=== PATIENT | female | born 1965 | race African-American/Black ===

== ENCOUNTER 2021-09-30 11:11 | Day surgery (SDC) | payer OTHER, SELFPAY ==
[2021-09-26 13:48] VITALS: BMI 40.6
--- NOTE | 2021-09-29 10:13 | HO.ANESPROP2 ---
Documented by User: Mely Bill NP 09/29/21 10:13 HPI - Anesthesia Eval Consult details Narrative: 56yo F for Colonoscopy [facility] Past Medical History Medical History (Updated 09/26/21 @ 13:48 by Fay Rodriguez RN) Arthritis COVID-19 vaccine series completed HTN (hypertension) Surgical History Surgical History (Updated 09/26/21 @ 13:30 by Fay Rodriguez RN) H/O colonoscopy Social History Social History Are you a primary child care to a significant other at home: No Do you presently have visiting nurse or other home services: No Patient Tobacco Use Status: Former Tobacco user Quit Date: age 26 Tobacco use type: Cigarette Use of substances other than those prescribed or required for medical reasons: No Have you been hit, kicked, punched, or otherwise hurt by someone within the past year? If so, by whom?: No Are you DNR?: No Advance Directives: No Advance Directives Information Provided: Yes (brochure mailed) Advance Directives on File: No Recently lost weight without trying: No Eating poorly because of decreased appetite: No Nutrition Risks: No Nutritional Risk Poor oral hygiene: No (upper & lower partial) Meds Allergies Allergy/AdvReac Type Severity Reaction Status Date / Time No Known Allergies Allergy Unverified 01/08/20 15:13 [No Known Allergies*] Home Medications Medication Instructions Recorded Confirmed Last Taken Type amlodipine 10 mg tablet 1 tab PO DAILY 09/26/21 09/26/21 09/30/21 08:00 History cholecalciferol (vitamin D3) 1,250 1 cap PO QWEEK 09/26/21 09/26/21 Unknown History mcg (50,000 unit) capsule multivitamin 1 tab PO DAILY 09/26/21 09/26/21 Unknown History Exam Exam Date and Time: September 29, 2021 1013 Height,Weight and Vital Signs: Height 5 ft 9 in Weight 124.738 kg Assessment and Plan Assessment Anesthesia Assessment: Chart Reviewed Documented by User: Luis Shipley MD 09/30/21 12:17 [facility] Past Medical History Medical History (Updated 09/26/21 @ 13:48 by Fay Rodriguez RN) Arthritis COVID-19 vaccine series completed HTN (hypertension) Family History Family history of problems with anesthesia: No Surgical History Surgical History (Updated 09/26/21 @ 13:30 by Fay Rodriguez RN) H/O colonoscopy History of Problems with Anesthesia: No Social History Social History Are you a primary child care to a significant other at home: No Do you presently have visiting nurse or other home services: No Patient Tobacco Use Status: Former Tobacco user Quit Date: age 26 Tobacco use type: Cigarette Use of substances other than those prescribed or required for medical reasons: No Have you been hit, kicked, punched, or otherwise hurt by someone within the past year? If so, by whom?: No Are you DNR?: No Advance Directives: No Advance Directives Information Provided: Yes (brochure mailed) Advance Directives on File: No Recently lost weight without trying: No Eating poorly because of decreased appetite: No Nutrition Risks: No Nutritional Risk Poor oral hygiene: No (upper & lower partial) Meds Allergies Allergy/AdvReac Type Severity Reaction Status Date / Time No Known Allergies Allergy Unverified 01/08/20 15:13 [No Known Allergies*] Home Medications Medication Instructions Recorded Confirmed Last Taken Type amlodipine 10 mg tablet 1 tab PO DAILY 09/26/21 09/26/21 09/30/21 08:00 History cholecalciferol (vitamin D3) 1,250 1 cap PO QWEEK 09/26/21 09/26/21 Unknown History mcg (50,000 unit) capsule multivitamin 1 tab PO DAILY 09/26/21 09/26/21 Unknown History Exam Airway Mallampati Class: III TM Dist: >3cm Neck ROM: Full Partial: Upper Assessment and Plan Assessment Anesthesia Assessment: Anesthesia Plan Discussed Final Anesthetic Review Family History of Problems with Anesthesia: No History of Problems with Anesthesia: No NPO: Yes ASA Class: II Final Preanesthetic Review: No Changes in Pt Med Stat, Meds/Allgs Chart Reviewed, Consent Obtained/Reviewed and Anes Risks/Benef Reviewed Patient Risk: Low Procedure Risk: Low Anesthetic Plan Anesthetic Plan: MAC: Disposition: Standard PACU
[2021-09-30 12:00] VITALS: BP 126/79; PULSE 75; RESP 16; TEMP 36.4; O2SAT 96; BMI 40.6
--- NOTE | 2021-09-30 13:00 | MHC.SHP ---
Pre-Procedural Eval Section A Date of Service: 09/30/21 The patient is an INPATIENT: No Changes since office visit: No Cold of Flu in the past 2 weeks, No New Medical Problems, No Changes in Medication and No Patient answered all questions The History & Physical has been completed within 30 days and I have reviewed it.: Yes Section B Chief Complaint: Right upper quadrant pain,Change in bowel habit Allergies: Allergies Allergy/AdvReac Type Severity Reaction Status Date / Time No Known Allergies Allergy Unverified 01/08/20 15:13 [No Known Allergies*] Plan I have reviewed the history and physical and performed a pertinent physical examination on my patient. No changes have occurred unless specified.
[2021-09-30 13:38] VITALS: BP 84/44; PULSE 80; RESP 16; TEMP 37.2; O2SAT 96
--- NOTE | 2021-09-30 13:46 | P.BOP_ITS ---
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
[2021-09-30 13:51] VITALS: BP 128/80; PULSE 77; RESP 16; TEMP 36.7; O2SAT 97
[2021-09-30] MEDS: Lactated Ringers 1,000 ML 100 ML IVCONT (13:58)
--- NOTE | 2021-09-30 19:50 | OP_ITS ---
SURGEON: Jak Lees MD INDICATIONS: Right upper quadrant pain and change in bowel habits. PREOPERATIVE DIAGNOSIS: POSTOPERATIVE DIAGNOSIS: PROCEDURE PERFORMED: Colonoscopy to the terminal ileum with biopsy. ESTIMATED BLOOD LOSS: COMPLICATIONS: ANESTHESIA: ASSISTANTS: SPECIMENS: MEDICATIONS: Monitored anesthesia care. DESCRIPTION OF PROCEDURE: History and physical were performed. The risks and benefits of the procedure were explained to the patient. Informed consent was obtained and the patient placed in left lateral decubitus position. A digital rectal exam was performed and was found to be normal. The Olympus pediatric video colonoscope was introduced into the rectum and advanced to the cecum without difficulty. The cecum was identified by transillumination, palpation, and identification of the ileocecal valve. Examination was performed and the scope was removed. She tolerated the procedure well and was taken to recovery area in stable condition. FINDINGS: The terminal ileum was examined and appeared normal. Visualized colonic mucosa was normal. The quality of the prep was good. There was no evidence of colitis or mucosal abnormalities particularly in the area of the right upper quadrant. There was mild sigmoid diverticulosis. No mass lesions were identified. Retroflexed examination showed some small internal hemorrhoids. Random sigmoid biopsies were obtained to rule out microscopic colitis. IMPRESSION: Normal colonoscopy. RECOMMENDATION: 1. Follow up as needed. 2. Repeat colonoscopy is recommended in 10 years for average risk individuals. MD AMEENA Mejias/MODL / [id number]
== END 2021-09-30 14:20 | disposition home or self-care (01) ==
PROVIDERS: PCP Nurse Practitioner; Visit Provider Internal Medicine Gastroenterology
PROC: 0DJD8ZZ Inspection of Lower Intestinal Tract, Via Natural or Artificial Opening Endoscopic (ICD-10-PCS; CPT 45378; principal; 2021-09-30 12:20)
DX: R19.4 Change in bowel habit (principal); R10.11 Right upper quadrant pain; Z80.0 Family history of malignant neoplasm of digestive organs; R19.7 Diarrhea, unspecified; K57.30 Diverticulosis of large intestine without perforation or abscess without bleeding; K64.8 Other hemorrhoids; I10 Essential (primary) hypertension; Z79.899 Other long term (current) drug therapy; Z87.891 Personal history of nicotine dependence
CPT/HCPCS: 45380; 88305

== ENCOUNTER 2024-10-15 11:55 | Outpatient (REF) | payer OTHER, SELFPAY ==
[2024-10-15 13:29] LABS: MANUAL DIFF FLAG NO
[2024-10-15 13:32] LABS: Basophils Percent Auto 0.5 % (0-2); Eosinophils Absolute Auto 0.3 X10*3/uL (0.0-0.4); Eosinophils Percent Auto 5.2 % (0-4); Hematocrit 35.1 % (37.0-47.0); Hemoglobin 11.9 g/dl (12.0-16.0); Imm Gran Abs Auto 0.01 X10*3/uL (0.00-0.03); Imm Gran Pct Auto 0.2 % (0.0-0.4); Lymphocytes Absolute Auto 2.3 X10*3/uL (1.2-4.9); Lymphocytes Percent Auto 41.4 % (20-40); Mean Corpuscular HGB Conc 33.9 g/dl (31.0-35.0); Mean Corpuscular Hemoglobin 31.8 pg (27.0-33.0); Mean Corpuscular Volume 93.9 fL (80.0-98.0); Mean Platelet Volume 9.4 fL (9.4-12.3); Monocytes Absolute Auto 0.5 X10*3/uL (0.1-1.2); Monocytes Percent Auto 8.8 % (2-11); Neutrophils Absolute Auto 2.4 x10*3/uL (2.0-8.3); Neutrophils Percent Auto 43.9 % (45-73); Platelet Count 292 X10*3/uL (160-400); Red Blood Count 3.74 X10*6/uL (4.20-5.50); White Blood Count 5.6 X10*3/uL (4.8-10.8)
--- OUTSIDE RECORDS SUMMARY | 2024-10-15 14:10 | XMS_ITS | Data Portability ---
Author Organization [facility], Main Office Address [address] [facility] [address] [place] [id number] Care Team Providers Care Buyer Internship Name Role Phone [facility] Gynecolo gist JAK LEES JR Veterinarian [facility] (NADEEM KRUSE) Orthopedic Surgeon PETAR WHYTE Orthopedic Surgeon MIRNA GALINDO Primary Care Provider Assessment No assessment recorded. Plan of Treatment Reminders Order Date Submit Date Provider Last Modified By Organization Details Last Modified Time Details Appointments FOLLOW UP 2024 09:15A M MIRNA GALINDO MD Not available Not available Not available Lab lipid panel, serum 2024 025 GELA [facility], [address] [place], [address], 08/28/2024 13:55:38 BMP, serum or plasma 2024 025 GELA [facility], [address], [place], [address], 08/28/2024 13:55:38 TSH, ultra-s ensitiv e, serum 2024 025 GELA [facility], [address] [place], [address], 08/28/2024 13:55:37 Hepatit is C IgG Ab, qual, serum 2024 025 GELA [facility] (Centralized Electronic Ordering - All Locations), Patient Can Go To The Location Of Their Choice, 08/28/2024 13:55:39 CBC w/ auto diff 2024 025 GELA [facility], [address], [place], [address], 08/28/2024 13:55:37 iron + total iron-bi nding capacit y (TIBC), serum 2024 025 GELA [facility] (Centralized Electronic Ordering - All Locations), Patient Can Go To The Location Of Their Choice, 08/28/2024 13:55:37 ferriti n, serum or plasma 2024 025 GELA [facility] (Centralized Electronic Ordering - All Locations), Patient Can Go To The Location Of Their Choice, 08/28/2024 13:55:38 retic count, blood 2024 025 GELA [facility] (Centralized Electronic Ordering - All Locations), Patient Can Go To The Location Of Their Choice, 08/28/2024 13:55:39 giardia lamblia Ag, EIA, stool 2024 025 GELA [facility], [address], [place], [address], 06/27/2024 10:06:30 gastroi ntestin al pathoge ns panel, culture , stool 2024 025 EGLA [facility], [address], [place], [address], 06/27/2024 10:06:29 lipid panel, serum 2023 024 GELA [facility], [address], [place], [address], 04/08/2024 08:09:22 CBC w/ auto diff 2023 024 GELA [facility], [address], [place], [address], 04/08/2024 08:09:20 iron + total iron-bi nding capacit y (TIBC), serum 2023 024 GELA [facility] (Centralized Electronic Ordering - All Locations), Patient Can Go To The Location Of Their Choice, [facility] 04/08/2024 08:09:22 ferriti n, serum or plasma 2023 024 GELA [facility] (Centralized Electronic Ordering - All Locations), Patient Can Go To The Location Of Their Choice, [id number] 04/08/2024 08:09:24 retic count, blood 2023 GELA [facility] (Centralized Electronic Ordering - All Locations), Patient Can Go To The Location Of Their Choice, [id number] 04/08/2024 08:09:25 BMP, serum or plasma 2023 024 GELA [facility], [address], [place], [address], 04/08/2024 08:09:20 TSH, ultra-s ensitiv e, serum 2023 024 GELA [facility], [address], [place], [address], 04/08/2024 08:09:23 Referral gynecol ogist referra l 2024 025 [email or web address] Not available 08/28/2024 14:03:45 gastroe nterolo gist referra l 2024 025 ATHENAFAX Jak Lees Jr, MD, [address] [place] [address] [place], [address], 06/23/2024 13:58:28 Procedures None recorde d. Surgeries None recorde d. Imaging US, duplex, venous, lower extremi ty, unilate ral - vascula r study to check for venous insuffi ciency 2024 025 melanie [facility] (Ultrasound), [address], [place], [address], 09/09/2024 10:39:42 XR, abdomen - RLQ pain - ? d/t underly ing constip ation --- please comment on stool burden 2024 025 [facility], [address], [place], [address], 06/23/2024 17:24:25 pharmac ologic [facility] chest pain 2023 024 melanie [facility], [address] [place], [address], 04/28/2024 10:08:53 Medication Orders valsart an 160 mg tablet 2024 025 GELA [id number], [address], [place], [id number], 08/28/2024 13:55:36 valsart an 80 mg tablet 2022 023 [id number], [address], [place], [id number], 08/28/2024 13:47:12 Patient TargetsNo targets recorded. Patient Instructions Encounter Date Encounter Id Patient Instructions Last Modified By Organization Details Last Modified Time 12/26/2022 [id number] starting a weigh t loss plan: care instructions Not available 12/26/2022 11:45:36 Nutrition Referral and Weight Management Follow-up Information Not available 12/26/2022 11:45:36 04/07/2024 [id number] high blood pressure: care instructions Not available 04/07/2024 13:37:04 learning about high blood pressure Not available 04/07/2024 13:37:04 iron deficiency anemia: care instructions Not available 04/07/2024 13:37:04 06/23/2024 [id number] Patient will follow up and keep appointment as scheduled. [email or web address] Not available 06/23/2024 13:22:15 08/28/2024 [id number] medical record request* [email or web address] Not available 09/02/2024 09:35:40 When You Want to Lose Weight: Care Instructions Not available 08/28/2024 15:01:14 body mass index: care instructions Not available 08/28/2024 15:01:14 learning about healthy weight Not available 08/28/2024 15:01:14 leg and ankle edema: care instructions Not available 08/28/2024 13:55:31 iron deficiency anemia: care instructions Not available 08/28/2024 13:55:31 Reason for Referral Veterinarian Referral for Right lower quadrant pain Referring Physician: Maximo Redman, Internal Medicine, Encounter Date: 06/23/2024 [employer]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) [address] [place], [address], 04/08/2024 08:09:19 04/07/20 24 04/08/2024 CBC WITH DIFFE RENTI AL/PL ATELE T RBC 4.03 x10e6 /uL 3.77-5 .28 normal Not Available [facility] ([facility]) [address] [place], [address], 04/08/2024 08:09:19 04/07/20 24 04/08/2024 CBC WITH DIFFE RENTI AL/PL ATELE T hemoglobin 12.6 g/dL 11.1-1 5.9 normal Not Available [facility] ([facility]) [address] [facility], [place], [address], 04/08/2024 08:09:19 04/07/20 24 04/08/2024 CBC WITH DIFFE RENTI AL/PL ATELE T hematocrit 38.2 % 34.0-4 6.6 normal Not Available [facility] ([facility]) [address] [facility], [place], [address], 04/08/2024 08:09:19 04/07/20 24 04/08/2024 CBC WITH DIFFE RENTI AL/PL ATELE T MCV 95 fL 79-97 normal Not Available [facility] ([facility]) [address] [facility], [place], [address], 04/08/2024 08:09:19 04/07/20 24 04/08/2024 CBC WITH DIFFE RENTI AL/PL ATELE T MCH 31.3 pg 26.6-3 3.0 normal Not Available [facility] ([facility]) [address] [facility], [place], [address], 04/08/2024 08:09:19 04/07/20 24 04/08/2024 CBC WITH DIFFE RENTI AL/PL ATELE T MCHC 33.0 g/dL 31.5-3 5.7 normal Not Available [facility] ([facility]) [address] [facility], [place], [address], 04/08/2024 08:09:19 04/07/20 24 04/08/2024 CBC WITH DIFFE RENTI AL/PL ATELE T RDW 12.3 % 11.7-1 5.4 Not Available [facility] ([facility]) [address] [facility], [place], [address], 04/08/2024 08:09:19 04/07/20 24 04/08/2024 CBC WITH DIFFE RENTI AL/PL ATELE T platelets 341 x10e3 /uL 150-45 0 normal Not Available [facility] ([facility]) [address] [facility], [place], [address], 04/08/2024 08:09:19 04/07/20 24 04/08/2024 CBC WITH DIFFE RENTI AL/PL ATELE T neutrophils 47 % not estab. normal Not Available [facility] ([facility]) [address] [facility], [place], [address], 04/08/2024 08:09:19 04/07/20 24 04/08/2024 CBC WITH DIFFE RENTI AL/PL ATELE T lymphs 42 % not estab. normal Not Available [facility] ([facility]) [address] [facility], [place], [address], 04/08/2024 08:09:19 04/07/20 24 04/08/2024 CBC WITH DIFFE RENTI AL/PL ATELE T monocytes 6 % not estab. normal Not Available [facility] ([facility]) [address] [facility], [place], [address], 04/08/2024 08:09:19 04/07/20 24 04/08/2024 CBC WITH DIFFE RENTI AL/PL ATELE T eos 4 % not estab. normal Not Available [facility] ([facility]) [address] [facility], [place], [address], 04/08/2024 08:09:19 04/07/20 24 04/08/2024 CBC WITH DIFFE RENTI AL/PL ATELE T basos 1 % not estab. normal Not Available [facility] ([facility]) [address] [facility], [place], [address], 04/08/2024 08:09:19 04/07/20 24 04/08/2024 CBC WITH DIFFE RENTI AL/PL ATELE T immature cells DIRECTOR OF HOTEL OPERATIONS Not Available [facility] ([facility]) [address] [facility], [place], [address], 04/08/2024 08:09:19 04/07/20 24 04/08/2024 CBC WITH DIFFE RENTI AL/PL ATELE T neutrophils (absolute) 3.0 x10e3 /uL 1.4-7. 0 normal Not Available [facility] ([facility]) [address] [place], [address], 04/08/2024 08:09:19 04/07/20 24 04/08/2024 CBC WITH DIFFE RENTI AL/PL ATELE T lymphs (absolute) 2.7 x10e3 /uL 0.7-3. 1 normal Not Available [facility] ([facility]) [address] [place], [address], 04/08/2024 08:09:19 04/07/20 24 04/08/2024 CBC WITH DIFFE RENTI AL/PL ATELE T monocytes(ab solute) 0.4 x10e3 /uL 0.1-0. 9 normal Not Available [facility] ([facility]) [address] [place], [address], 04/08/2024 08:09:19 04/07/20 24 04/08/2024 CBC WITH DIFFE RENTI AL/PL ATELE T eos (absolute) 0.3 x10e3 /uL 0.0-0. 4 normal Not Available [facility] ([facility]) [address] [place], [address], 04/08/2024 08:09:19 04/07/20 24 04/08/2024 CBC WITH DIFFE RENTI AL/PL ATELE T baso (absolute) 0.0 x10e3 /uL 0.0-0. 2 normal Not Available [facility] ([facility]) [address] [place], [address], 04/08/2024 08:09:19 04/07/20 24 04/08/2024 CBC WITH DIFFE RENTI AL/PL ATELE T immature granulocytes 0 % not estab. Not Available [facility] ([facility]) [address] [place], [address], 04/08/2024 08:09:19 04/07/20 24 04/08/2024 CBC WITH DIFFE RENTI AL/PL ATELE T immature grans (abs) 0.0 x10e3 /uL 0.0-0. 1 Not Available [facility] ([facility]) [address] [facility], [place], [address], 04/08/2024 08:09:19 04/07/20 24 04/08/2024 CBC WITH DIFFE RENTI AL/PL ATELE T NRBC DIRECTOR OF HOTEL OPERATIONS Not Available [facility] ([facility]) [address] [facility], [place], [address], 04/08/2024 08:09:19 04/07/20 24 04/08/2024 CBC WITH DIFFE RENTI AL/PL ATELE T hematology comments: DIRECTOR OF HOTEL OPERATIONS Not Available [facility] ([facility]) [address] [facility], [place], [address], 04/08/2024 08:09:19 04/07/20 24 04/08/2024 BASIC METAB OLIC PANEL (8) glucose 93 mg/dL 70-99 normal Not Available [facility] ([facility]) [address] [facility], [place], [address], 04/08/2024 08:09:20 04/07/20 24 04/08/2024 BASIC METAB OLIC PANEL (8) BUN 12 mg/dL 6-24 normal Not Available [facility] ([facility]) [address] [facility], [place], [address], 04/08/2024 08:09:20 04/07/20 24 04/08/2024 BASIC METAB OLIC PANEL (8) creatinine 0.81 mg/dL 0.57-1 .00 normal Not Available [facility] ([facility]) [address] [facility], [place], [address], 04/08/2024 08:09:20 04/07/20 24 04/08/2024 BASIC METAB OLIC PANEL (8) eGFR 85 mL/mi n/1.7 3 >59 normal Not Available [facility] ([facility]) [address] [facility], [place], [address], 04/08/2024 08:09:20 04/07/20 24 04/08/2024 BASIC METAB OLIC PANEL (8) BUN/creatini ne ratio 15 9-23 normal Not Available [facility] ([facility]) [address] [facility], [place], [address], 04/08/2024 08:09:20 04/07/20 24 04/08/2024 BASIC METAB OLIC PANEL (8) sodium 139 mmol/ L 134-14 4 normal Not Available [facility] ([facility]) [address] [facility], [place], [address], 04/08/2024 08:09:20 04/07/20 24 04/08/2024 BASIC METAB OLIC PANEL (8) potassium 3.9 mmol/ L 3.5-5. 2 normal Not Available [facility] ([facility]) [address] [facility], [place], [address], 04/08/2024 08:09:20 04/07/20 24 04/08/2024 BASIC METAB OLIC PANEL (8) chloride 102 mmol/ L 96-106 normal Not Available [facility] ([facility]) [address] [place], [address], 04/08/2024 08:09:20 04/07/20 24 04/08/2024 BASIC METAB OLIC PANEL (8) carbon dioxide, total 23 mmol/ L 20-29 normal Not Available [facility] ([facility]) [address] [facility], [place], [address], 04/08/2024 08:09:20 04/07/20 24 04/08/2024 BASIC METAB OLIC PANEL (8) calcium 9.4 mg/dL 8.7-10 .2 normal Not Available [facility] ([facility]) [address] [facility], [place], [address], 04/08/2024 08:09:20 04/07/20 24 04/08/2024 LIPID PANEL cholesterol, total 216 mg/dL 100-19 9 above high normal Not Available [facility] ([facility]) [address] [place], [address], 04/08/2024 08:09:22 04/07/20 24 04/08/2024 LIPID PANEL triglyceride s 93 mg/dL 0-149 normal Not Available [facility] ([facility]) [address] [place], [address], 04/08/2024 08:09:22 04/07/20 24 04/08/2024 LIPID PANEL HDL cholesterol 73 mg/dL >39 normal Not Available [facility] ([facility]) [address] [place], [address], 04/08/2024 08:09:22 04/07/20 24 04/08/2024 LIPID PANEL VLDL cholesterol sondra 16 mg/dL 5-40 Not Available [facility] ([facility]) [address] [place], [address], 04/08/2024 08:09:22 04/07/20 24 04/08/2024 LIPID PANEL LDL chol calc ([facility]) 127 mg/dL 0-99 above high normal Not Available [facility] ([facility]) [address] [place], [address], 04/08/2024 08:09:22 04/07/20 24 04/08/2024 LIPID PANEL LDL calc comment: DIRECTOR OF HOTEL OPERATIONS Not Available [facility] ([facility]) [address] [place], [address], 04/08/2024 08:09:22 04/07/20 24 04/08/2024 IRON AND TIBC iron bind.cap.(TI BC) 378 ug/dL 250-45 0 normal Not Available [facility] ([facility]) [address] [place], [address], 04/08/2024 08:09:22 04/07/20 24 04/08/2024 IRON AND TIBC UIBC 286 ug/dL 131-42 5 normal Not Available [facility] ([facility]) [address] [place], [address], 04/08/2024 08:09:22 04/07/20 24 04/08/2024 IRON AND TIBC iron 92 ug/dL 27-159 normal Not Available [facility] ([facility]) [address] [place], [address], 04/08/2024 08:09:22 04/07/20 24 04/08/2024 IRON AND TIBC iron saturation 24 % 15-55 normal Not Available [facility] ([facility]) [address] [place], [address], 04/08/2024 08:09:22 04/07/20 24 04/08/2024 TSH RFX ON ABNOR MAL TO FREE T4 TSH 3.340 uIU/m L 0.450- 4.500 normal Not Available [facility] ([facility]) [address] [place], [address], 04/08/2024 08:09:23 04/07/20 24 04/08/2024 JEREMIAH TIN ferritin 156 NG/mL 15-150 above high normal Not Available [facility] ([facility]) [address] [place], [address], 04/08/2024 08:09:24 04/07/20 24 04/08/2024 RETIC ULOCY TE COUNT reticulocyte count 1.0 % 0.6-2. 6 Not Available [facility] ([facility]) [address] [place], [address], 04/08/2024 08:09:25 06/24/19 25 06/25/2024 STOOL CULTU RE salmonella/s higella screen Final report Not Available [facility] ([facility]) [address] [place], [address], 06/27/2024 10:06:29 06/24/19 25 06/25/2024 STOOL CULTU RE result 1 COMMEN T No Salmo rodrigo or Shige lla recov ered. Not Available [facility] ([facility]) [address] [place], [address], 06/27/2024 10:06:29 06/24/19 25 06/25/2024 STOOL CULTU RE E coli shiga toxin EIA Negati ve negati ve Not Available [facility] ([facility]) [address] [place], [address], 06/27/2024 10:06:29 06/24/19 25 06/27/2024 STOOL CULTU RE campylobacte r culture Final report Not Available [facility] ([facility]) [address] [place], [address], 06/27/2024 10:06:29 06/24/19 25 06/27/2024 STOOL CULTU RE result 1 COMMEN T No Campy lobac ter speci es isola serjio. Not Available [facility] ([facility]) [address] [place], [address], 06/27/2024 10:06:29 06/24/19 25 06/24/2024 GIARD IA LAMBL IA AG, EIA giardia lamblia Ag, EIA Negati ve negati ve Not Available [facility] ([facility]) [address] [place], [address], 06/27/2024 10:06:30 06/23/19 23 06/22/2022 MAMMO , scree dian, digit al, bilat eral PROCED URE: MM Digita l Mammo Screen ing INDICA TION: Screen ing for breast cancer . No known palpab le abnorm alitie s. COMPAR YOSVANY: Priors , most recent dated 04/28/19 22 TECHNI QUE: Full-f ield digita l CC and MLO 3D tomosy nthesi s images of both breast s were acquir ed. Comput er-aid ed detect ion (CAD) was utiliz ed in the interp retati on of this study. DENSIT Y: The breast tissue contai ns scatte red areas of fibrog landul ar densit y. FINDIN GS: No suspic ious masses , suspic ious microc alcifi cation s, or areas of hannah ectura l distor tion are seen in either breast to sugges t malign hafsa. IMPRES REN: No mammog raphic eviden ce of malign hafsa. RECOMM ENDATI ON: Annual mammog raphic screen ing BI-RAD S: 1 (Negat phil) Lay letter mailed to jomar t WSN: [id number] Orderi ng Physic sarahi: Anya barnett DIRECTOR OF HOTEL OPERATIONS, Juanita Ordonez Dictat ed By: Quentin Hay MD Dictat ed Date/T kathy: 2:19 pm Review ed By: Quentin Hay MD Signed By: Quentin Hay MD Signed Date/T kathy: 2:19 pm Transc ribed By: JONATHAN Transc riptio n Date/T kathy: 2:14 pm Birads : Patihollis t Class: Outpat ient [email or web address] (Out[facility] Imaging) [address] [place], [address], 08/02/2022 07:47:12 11/15/19 24 11/15/2023 MAMMO , scree dian, digit al, bilat eral PROCED URE: MM Digita l Mammo Screen ing INDICA TION: Screen ing for breast cancer . No known palpab le abnorm alitie s. Family histor y of breast cancer sister at the age of 70 COMPAR YOSVANY: Priors , most recent dated 06/23/19 23 TECHNI QUE: Full-f ield digita l CC and MLO 3D tomosy nthesi s images of both breast s were acquir ed. Comput er-aid ed detect ion (CAD) was utiliz ed in the interp retati on of this study. DENSIT Y: There are scatte red areas of fibrog landul ar densit y. FINDIN GS: No suspic ious masses , suspic ious microc alcifi cation s, or areas of hannah ectura l distor tion are seen in either breast to sugges t malign hafsa. IMPRES REN: No mammog raphic eviden ce of malign hafsa. RECOMM ENDATI ON: Annual mammog raphic screen ing BI-RAD S: 1 (Negat phil) Lay letter mailed to jomar guy WSN: [id number] Orderi ng Physic sarahi: Alexander Vora ie Dictat ed By: Quentin Hay MD Dictat ed Date/T kathy: 10:33 am Review ed By: Quentin Hay MD Signed By: Quentin Hay MD Signed Date/T kathy: 10:33 am Transc ribed By: CSB Transc riptio n Date/T kathy: 10:31 am Birads : Jomar guy Class: Outpat ient [email or web address] [facility] (Out[facility]) [address] [place], [address], 11/15/2023 10:47:43 11/15/19 24 11/15/2023 MAMMO , scree dian, digit al, bilat eral No observ ation record ed. [facility] [address] [place], [address], 11/15/2023 12:39:14 05/06/19 25 05/01/2024 pharm acolo gic stres s test No observ ation record ed. [email or web address] [facility] [address] , [place], [address], 05/15/2024 15:22:19 06/24/19 25 06/23/2024 XR, abdom en XR Abdome n AP supine view INDICA TION/C LINICA L QUESTI ON: Consti pation COMPAR YOSVANY: None FINDIN GS: Mild stool retent ion in the ascend ing colon. Otherw ise normal gas patter n. No obstru ction. No eviden ce of pneumo perito neum. No organo megaly , masses or calcif icatio ns. No acute bone findin gs. IMPRES REN: Mild stool retent ion but otherw ise normal . WSN: [id number] Orderi ng Physic sarahi: Ge Redman Dictat ed By: Ann Lucero MD Dictat ed Date/T kathy: 5:19 pm Review ed By: Ann Lucero MD Signed By: Ann Lucero MD Signed Date/T kathy: 5:19 pm Transc ribed By: JONTAHAN Transc ribed Date/T kathy: 5:18 pm Patien t Class: Outpat ient [facility] (Outpt Imaging) [address], [place], [address], 07/24/2024 10:27:20 09/23/19 25 09/22/2024 US, duple x, venou s, lower extre mity, compl ete US Dopple r Ext Lower Venous Bilat Reason : R60.0 LOCALI ZED EDEMA COMPAR YOSVANY: None IMAGIN G TECHNI QUE: Ultras ound of the veins from the groin throug h the calf was perfor med using graysc alexandre, color, and spectr al Dopple r ultras ound assess ing for comple te compre ssibil ity and normal flow charac terist ics. FINDIN GS: RIGHT LOWER EXTREM ITY: Common femora l vein: Patent . No thromb osis. Femora l vein: Patent . No thromb osis. Poplit eal vein: Patent . No thromb osis. Gastro cnemiu s veins: The visual ized portio ns are patent withou t eviden ce of thromb osis. Perone al veins: The visual ized portio ns are patent withou t eviden ce of thromb osis. Mamma Logist ior tibial veins: The visual ized portio ns are patent withou t eviden ce of thromb osis. LEFT LOWER EXTREM ITY: Common femora l vein: Patent . No thromb osis. Femora l vein: Patent . No thromb osis. Poplit eal vein: Patent . No thromb osis. Gastro cnemiu s veins: The visual ized portio ns are patent withou t eviden ce of thromb osis. Perone al veins: The visual ized portio ns are patent withou t eviden ce of thromb osis. Mamma Logist ior tibial veins: The visual ized portio ns are patent withou t eviden ce of thromb osis. OTHER FINDIN GS: None. IMPRES REN: No eviden ce of deep venous thromb osis. I have person ally review ed the images and I agree with this report . WSN: [id number] Orderi ng Physic sarahi: Alexander Vora Dictat ed By: Alma Floyd i, DO Dictrosa maria ed Date/T kathy: 5:14 pm Review ed By: Papito Weathers MD Signed By: Papito Weathers MD Signed Date/T kathy: 5:19 pm Transc ribed By: JONATHAN Transc ribed Date/T kathy: 5:05 pm Patien t Class: Outpat ient [facility] (Outpt Imaging) [address] [place] [address], [address], 09/30/2024 18:53:19 Result Notes Documentation Provider Name and Address Organization Details Recorded Time Mammo, Screening, Digital, Bilateral : PROCEDURE: MM Digital Mammo Screening INDICATION: Screening for breast cancer. No known palpable abnormalities. Family history of breast cancer sister at the age of 70 COMPARISON: Priors, most recent dated 06/22/2022 TECHNIQUE: Full-field digital CC and MLO 3D tomosynthesis images of both breasts were acquired. Computer-aided detection (CAD) was utilized in the interpretation of this study. DENSITY: There are scattered areas of fibroglandular density. FINDINGS: No suspicious masses, suspicious microcalcifications, or areas of architectural distortion are seen in either breast to suggest malignancy. IMPRESSION: No mammographic evidence of malignancy. RECOMMENDATION: Annual mammographic screening BI-RADS: 1 (Negative) Lay letter mailed to patient WSN: [id number] Ordering Physician: Mirna Galindo Dictated By: Mallory Hay MD Dictated Date/Time: 11/15/23 10:33 am Reviewed By: Mallory Hay MD Signed By: Mallory Hay MD Signed Date/Time: 11/15/23 10:33 am Transcribed By: JONATHAN Court Orderly Date/Time: 11/15/23 10:31 am Birads: Patient Class: Outpatient Sylwia Vanegas [facility] 11/15/2023 10:47:43 Xr, Abdomen : XR Abdomen AP supine view INDICATION/CLINICAL QUESTION: Constipation COMPARISON: None FINDINGS: Mild stool retention in the ascending colon. Otherwise normal gas pattern. No obstruction. No evidence of pneumoperitoneum. No organomegaly, masses or calcifications. No acute bone findings. IMPRESSION: Mild stool retention but otherwise normal. WSN: [id number] Ordering Physician: Maximo Redman Dictated By: Lawrence Bowen MD Dictated Date/Time: 06/23/24 5:19 pm Reviewed By: Lawrence Bowen MD Signed By: Lawrence Bowen MD Signed Date/Time: 06/23/24 5:19 pm Transcribed By: JONATHAN Transcribed Date/Time: 06/23/24 5:18 pm Patient Class: Outpatient Samia Walters MA [facility] 07/24/2024 10:27:20 Problems Name Problem SNOMED Code Status Onset Date Resolution Date Notes Provider Name and Address Organization Details Recorded Time Acute bronchit is 77604613 Completed 201211/27/2013 RECORDED 11/21/19 13 10:04AM BY ARCELIA BRUNOATI ON/ADDEN DUM Not Available [facility] 4 12:27:29 Acute sinusiti s [id number] Completed 201211/27/2013 RECORDED 05/07/19 13 12:57PM BY NGUYEN MAGAÑA MA, ANNOTATI ON/ADDEN DUM Not Available [facility] 4 12:27:29 Acute upper respirat ory infectio n of multiple sites Completed 201211/27/2013 RECORDED 05/07/19 13 12:57PM BY NGUYEN MAGAÑA MA, GIANFRANCO ON/ADDEN DUM Not Available [facility] 4 12:27:30 Screenin g for malignan t neoplasm of breast Completed 201211/27/2013 RECORDED 05/07/19 13 12:57PM BY NGUYEN MAGAÑA MA, ANNOTATI ON/ADDEN DUM Not Available [facility] 4 12:27:30 Screenin g for malignan t neoplasm of cervix Completed 201211/27/2013 RECORDED 05/07/19 13 12:57PM BY NGUYEN MAGAÑA MA, ARCELIAATI ON/ADDEN DUM Not Available [facility] 4 12:27:30 Cough [id number] Completed 201211/27/2013 IMPRESSI ON: PROBABLY POST-VIR AL. DISCUSSE D THE NATURAL COURSE OF THIS TYPE OF COUGH AND THE FACT THAT NONE OF THE TREATMEN T MAY HELP MUCH AND THE COUGH NEEDS TO RUN IT'S COURSE.; RECORDED 11/27/19 13 11:37AM BY TRELL FONTANEZ MA, GIANFRANCO ON/ADDEN DUM Not Available [facility] 4 12:27:30 Dysuria [id number] Completed 201211/27/2013 RECORDED 05/07/19 13 12:57PM BY NGUYEN MAGAÑA MA, ARCELIAATI ON/ADDEN DUM Not Available [facility] 4 12:27:30 Follow-u p encounte r Completed 201211/27/2013 RECORDED 05/07/19 13 12:57PM BY NGUYEN MAGAÑA MA, GIANFRANCO ON/ADDEN DUM Not Available [facility] 4 12:27:30 Malaise and fatigue 469511877 Completed 200811/27/2013 RECORDED 01/28/20 09 7:55AM BY NGUYEN MAGAÑA MA, GIANFRANCO ON/ADDEN DUM Not Available [facility] 4 12:27:30 Tobacco user [id number] Completed 201211/27/2013 RECORDED 01/14/20 13 2:56PM BY THEODORA WARE MA, ANNOTATI ON/ADDEN DUM Not Available [facility] 4 12:27:30 Adult health examinat ion Completed 200811/27/2013 RECORDED 01/28/20 09 7:55AM BY NGUYEN MAGAÑA MA, ANNOTATI ON/ADDEN DUM Not Available [facility] 4 12:27:30 Sprains and strains of joints and adjacent muscles Completed 201211/27/2013 RECORDED 04/04/20 13 10:02AM BY NGUYEN MAGAÑA MA, ANNOTATI ON/ADDEN DUM Not Available [facility] 4 12:27:30 Stress fracture [id number] Completed 201211/27/2013 RECORDED 05/07/19 13 12:57PM BY NGUYEN MAGAÑA MA, ANNOTATI ON/ADDEN DUM Not Available [facility] 4 12:27:30 Candidal vulvovag initis 08885208 Completed 200811/27/2013 RECORDED 01/28/20 09 7:55AM BY NGUYEN MAGAÑA MA, ANNOTATI ON/ADDEN DUM Not Available [facility] 4 12:27:31 Acute bronchit is 46377279 Completed 201211/28/2013 RECORDED 11/21/19 13 10:04AM BY MAIRA VU I, ARCELIAATI ON/ADDEN DUM Not Available [facility] 4 03:38:58 Acute sinusiti s 16062389 Completed 201211/28/2013 RECORDED 05/07/19 13 12:57PM BY NGUYEN MAGAÑA MA, ANNOTATI ON/ADDEN DUM Not Available [facility] 4 03:38:58 Acute upper respirat ory infectio n of multiple sites Completed 201211/28/2013 RECORDED 05/07/19 13 12:57PM BY NGUYEN MAGAÑA MA, ANNOTATI ON/ADDEN DUM Not Available [facility] 4 03:38:58 Screenin g for malignan t neoplasm of breast Completed 201211/28/2013 RECORDED 05/07/19 13 12:57PM BY NGUYEN MAGAÑA MA, ANNOTATI ON/ADDEN DUM Not Available [facility] 4 03:38:58 Screenin g for malignan t neoplasm of cervix Completed 201211/28/2013 RECORDED 05/07/19 13 12:57PM BY NGUYEN MAGAÑA MA, ANNOTATI ON/ADDEN DUM Not Available [facility] 4 03:38:59 Cough 10174926 Completed 201211/28/2013 IMPRESSI ON: PROBABLY POST-VIR AL. DISCUSSE D THE NATURAL COURSE OF THIS TYPE OF COUGH AND THE FACT THAT NONE OF THE TREATMEN T MAY HELP MUCH AND THE COUGH NEEDS TO RUN IT'S COURSE.; RECORDED 11/27/19 13 11:37AM BY TRELL FONTANEZ MA, GIANFRANCO ON/ADDEN DUM Not Available [facility] 4 03:38:59 Dysuria 57894826 Completed 201211/28/2013 RECORDED 05/07/19 13 12:57PM BY NGUYEN MAGAÑA MA, ARCELIAATI ON/ADDEN DUM Not Available [facility] 4 03:38:59 Follow-u p encounte r Completed 201211/28/2013 RECORDED 05/07/19 13 12:57PM BY NGUYEN MAGAÑA MA, ANNOTATI ON/ADDEN DUM Not Available [facility] 4 03:38:59 Malaise and fatigue 021917118 Completed 200811/28/2013 RECORDED 01/28/20 09 7:55AM BY NGUYEN MAGAÑA MA, ANNOTATI ON/ADDEN DUM Not Available [facility] 4 03:38:59 Tobacco user [id number] Completed 201211/28/2013 RECORDED 01/14/20 13 2:56PM BY THEODORA WARE MA, ANNOTATI ON/ADDEN DUM Not Available [facility] 4 03:38:59 Adult health examinat ion Completed 200811/28/2013 RECORDED 01/28/20 09 7:55AM BY NGUYEN MAGAÑA MA, ANNOTATI ON/ADDEN DUM Not Available [facility] 4 03:38:59 Sprains and strains of joints and adjacent muscles Completed 201211/28/2013 RECORDED 04/04/20 13 10:02AM BY NGUYEN MAGAÑA MA, ANNOTATI ON/ADDEN DUM Not Available [facility] 4 03:38:59 Stress fracture 771690468 Completed 201211/28/2013 RECORDED 05/07/19 13 12:57PM BY NGUYEN MAGAÑA MA, ANNOTATI ON/ADDEN DUM Not Available [facility] 4 03:38:59 Candidal vulvovag initis 89548030 Completed 200811/28/2013 RECORDED 01/28/20 09 7:55AM BY NGUYEN MAGAÑA MA, ANNOTATI ON/ADDEN DUM Not Available [facility] 4 03:38:59 Inflamma tion of sacroili ac joint 08068411 Active Not Available [facility] 2 02:26:40 Greater trochant valdo pain syndrome 1268898 Active Not Available [facility] 2 02:26:40 Body mass index 40+ - severely obese 193546972 Active Not Available [facility] 2 02:26:39 Elevated blood-pr essure reading without diagnosi s of hyperten ren 980917120 Completed 02/07/2018 Maximo Redman PA-C [address] [facility] [address], [place], [address] , [facility] 8 11:12:07 Fatigue 02354658 Completed 08/14/2017 Diann salter, [facility] 8 10:34:24 [facility] hyperten ren 70530267 Active 2017 Not Available [facility] 2 02:26:40 Family history of cancer of colon 128764584 Active 2018 Not Available [facility] 2 02:26:39 Abdomina l wall pain 825475917 Active 2019 Not Available [facility] 2 02:26:40 Alterati on in bowel eliminat ion 215816054 Active Not Available [facility] 2 02:26:40 Patient encounte r status 126077737 Active Not Available [facility] 2 02:26:40 Right upper quadrant pain 700896622 Active Not Available [facility] 2 02:26:40 Acute bronchit is 59907926 Completed 201211/04/2013 RECORDED 11/21/19 13 10:04AM BY MAIRA VU I, ANNOTATI ON/ADDEN DUM Not Available [facility] 4 14:04:17 Acute sinusiti s 71180166 Completed 201211/04/2013 RECORDED 05/07/19 13 12:57PM BY NGUYEN MAGAÑA MA, ANNOTATI ON/ADDEN DUM Not Available [facility] 4 14:04:17 Acute upper respirat ory infectio n of multiple sites Completed 201211/04/2013 RECORDED 05/07/19 13 12:57PM BY NGUYEN MAGAÑA MA, ANNOTATI ON/ADDEN DUM Not Available [facility] 4 14:04:17 Adjustme nt disorder with anxious mood 92399154 Active 2012 Not Available [facility] 2 02:26:39 Screenin g for malignan t neoplasm of breast Completed 201211/04/2013 RECORDED 05/07/19 13 12:57PM BY NGUYEN MAGAÑA MA, ANNOTATI ON/ADDEN DUM Not Available [facility] 4 14:04:17 Screenin g for malignan t neoplasm of cervix Completed 201211/04/2013 RECORDED 05/07/19 13 12:57PM BY NGUYENBOONE MAGAÑA MA, ARCELIAATI ON/ADDEN DUM Not Available [facility] 4 14:04:17 Cough 40623302 Completed 201211/04/2013 IMPRESSI ON: PROBABLY POST-VIR AL. DISCUSSE D THE NATURAL COURSE OF THIS TYPE OF COUGH AND THE FACT THAT NONE OF THE TREATMEN T MAY HELP MUCH AND THE COUGH NEEDS TO RUN IT'S COURSE.; RECORDED 11/27/19 13 11:37AM BY TRELL FONTANEZ MA, GIANFRANCO ON/ADDEN DUM Not Available [facility] 4 14:04:17 Dysuria 19649964 Completed 201211/04/2013 RECORDED 05/07/19 13 12:57PM BY NGUYEN MAGAÑA MA, GIANFRANCO ON/ADDEN DUM Not Available [facility] 4 14:04:17 Follow-u p encounte r Completed 201211/04/2013 RECORDED 05/07/19 13 12:57PM BY NGUYEN MAGAÑA MA, GIANFRANCO ON/ADDEN DUM Not Available [facility] 4 14:04:17 Malaise and fatigue 790763156 Completed 200811/04/2013 RECORDED 01/28/20 09 7:55AM BY NGUYEN MAGAÑA MA, ARCELIAATI ON/ADDEN DUM Not Available [facility] 4 14:04:17 Tobacco user 718664537 Completed 201211/04/2013 RECORDED 01/14/20 13 2:56PM BY THEODORA WARE MA, GIANFRANCO ON/ADDEN DUM Not Available [facility] 4 14:04:17 Hyperlip idemia 11333737 Active 2012 Not Available [facility] 2 02:26:39 Insomnia 838341658 Active 2012 Not Available [facility] 2 02:26:40 Major depressi on single episode, in partial remissio n 16139115 Active 2012 Not Available [facility] 2 02:26:39 Obesity 335903438 Active 2012 Not Available [facility] 2 02:26:39 Adult health examinat ion Completed 200811/04/2013 RECORDED 01/28/20 09 7:55AM BY NGUYEN MAGAÑA MA, ANNOTATI ON/ADDEN DUM Not Available [facility] 4 14:04:18 Sprains and strains of joints and adjacent muscles Completed 201211/04/2013 RECORDED 04/04/20 13 10:02AM BY NGUYEN MAGAÑA MA, ANNOTATI ON/ADDEN DUM Not Available [facility] 4 14:04:18 Stress fracture 098278528 Completed 201211/04/2013 RECORDED 05/07/19 13 12:57PM BY NGUYEN MAGAÑA MA, ANNOTATI ON/ADDEN DUM Not Available [facility] 4 14:04:18 Candidal vulvovag initis 64803408 Completed 200811/04/2013 RECORDED 01/28/20 09 7:55AM BY NGUYEN MAGAÑA MA, ANNOTATI ON/ADDEN DUM Not Available [facility] 4 14:04:18 Problem Notes None recorded. Procedures Surgical History Date Name Laterality Status Provider Name and Address Organization Details Recorded Time 11/15/19 24 Most Recent Mammogram completed Sylwia Vanegas [facility] 11/15/2023 10:47:38 10/01/19 22 Date of Last Colonoscopy completed Judy Sanchez [facility] 10/03/2021 14:10:43 10/01/19 22 Colonoscopy completed Judy Sanchez [facility] 10/03/2021 14:10:37 04/28/19 22 Mammogram screening completed Virginia Ferguson [facility] 06/03/2021 13:06:06 09/29/19 18 Date of Last Pap Smear completed Nguyen menezes MA [facility] 07/27/2018 09:53:55 11/28/19 15 Corticosteroid Injection completed Gary Howard MD [address] [place], [address], [facility] 11/27/2014 16:44:17 05/24/19 15 Laser in situ keratomileusis completed Nguyen menezes, [facility] 11/27/2014 16:03:57 Imaging Results None recorded. Procedure Notes None recorded. Medical Equipment None Reported. Allergies Allergen ID Allergen Name Allergen Category Reaction Reaction Severity Criticality Documentation Date Start Date Code Code System Note Provider Name and Address Organization Details Recorded Time 58152 lisinopri l medicatio n cough moderate Not available 04/05/2022 12979 RxNorm Sushila Costello MA null, [facility] 09:40:52 Medications Name Sig Start Date Stop Date Status Note LastModified by Organization Details LastModified Time multivita min tablet Take 1 tablet every day by oral route. active Not Available Not Available No t Available betametha sone valerate 0.1 % topical ointment Apply 1 applicat ion as needed by topical route as directed for 20 days. 03/18 completed Not Available Not Available Not Available prednison e 10 mg tablet 11/30 completed Not Available Not Available Not Available Iron (ferrous sulfate) 325 mg (65 mg iron) tablet Take 1 tablet every day by oral route. 08/28 completed Not Available Not Available Not Available azithromy denice 250 mg tablet DIRECTED active Not Available Not Available No t Available ofloxacin 0.3 % eye drops active Not Available Not Available Not Available fluconazo le 150 mg tablet UMESH PRN YEAST VAGINITI S 01/31 completed RECORDED 03/03/20 09 10:05AM BY GARY HOWARD MD, MEDICATI ON AUTO-WOOD CTIVATIO N; Not Available Not Available Not Available meloxicam 15 mg tablet Take 1 tablet every day by oral route for 30 days. 06/06 completed Not Available Not Available Not Available ondansetr on HCl 4 mg tablet TAKE 1 TABLET EVERY 6 HOURS NEEDED FOR NAUSEA 07/17 completed Not Available Not Available Not Available prednison e 20 mg tablet 04/17 completed Not Available Not Available Not Available cyanocoba jeevan (vit B-12) 1,000 mcg tablet Take 1 tablet every day by oral route. active Not Available Not Available No t Available valsartan 80 mg tablet TAKE 1 TABLET BY MOUTH EVERY 12 HOURS 08/28 completed Not Available Not Available Not Available amlodipin e 5 mg tablet TAKE 1 TABLET BY MOUTH EVERY DAY active Not Available Not Available No t Available oxycodone -acetamin ophen 5 mg-325 mg tablet 03/18 completed Not Available Not Available Not Available flaxseed oil 1,000 mg capsule Take 1 capsule every day by oral route. 04/17 completed Not Available Not Available Not Available citalopra m 20 mg tablet DAILY active Not Available Not Available Not Available prednisol one acetate 1 % eye drops,[employer] pension active Not Available Not Available Not Available amlodipin e 10 mg tablet TAKE 1 TABLET BY MOUTH EVERY DAY 04/17 completed Not Available Not Available Not Available benzonata te 100 mg capsule 10/04 completed Not Available Not Available Not Available lisinopri l 10 mg tablet TAKE 1 TABLET BY MOUTH EVERY DAY 04/05 completed Not Available Not Available Not Available folic acid 1 mg tablet 04/04 completed RECORDED 04/04/20 13 10:24AM BY NGUYEN MAGAÑA MA, OFFICE VISIT; Not Available Not Available Not Available monteluka st 10 mg tablet 10/04 completed Not Available Not Available Not Available zinc 50 mg tablet Take 1 tablet every day by oral route. 07/27 completed Not Available Not Available Not Available naproxen 500 mg tablet Take 1 tablet twice a day by oral route as needed for 15 days. 05/21 completed Not Available Not Available Not Available valsartan 160 mg tablet TAKE 1 TABLET BY MOUTH EVERY DAY active Not Available Not Available No t Available cholecalc iferol (vitamin D3) 25 mcg (1,000 unit) capsule Take 1 capsule every day by oral route. 04/17 completed Not Available Not Available Not Available Vitamin D3 25 mcg (1,000 unit) tablet Take 1 tablet every day by oral route as directed . 10/19 completed Not Available Not Available Not Available codeine-g uaifenesi n oral syrup EVERY FOUR HOURS, NEEDED 11/26 completed RECORDED 11/27/19 13 3:50PM BY TRELL FONTANEZ MA, OFFICE VISIT; Not Available Not Available Not Available bupropion HCl XL 300 mg 24 hr tablet, extended release Take 1 tablet every day by oral route. 10/19 completed Not Available Not Available Not Available bupropion HCl XL 150 mg 24 hr tablet, extended release Take 1 tablet every day by oral route for 30 days. 07/27 completed Not Available Not Available Not Available Readi-Cat 2 2.1 % (w/v), 2.0 % (w/w) oral suspensio n Take 450 mL twice a day by oral route as directed for 1 day. 09/02 completed Not Available Not Available Not Available fluocinol one 0.01 % scalp oil and shower cap Apply by topical route for 15 days. 06/06 completed Not Available Not Available Not Available One-A-Day Womens Formula 1 PO DAILY 04/17 completed Not Available Not Available Not Available vitamin E 04/04 completed RECORDED 04/04/20 13 10:24AM BY NGUYEN MAGAÑA MA, OFFICE VISIT; Not Available Not Available Not Available Multivita mins DAILY 04/04 completed RECORDED 04/04/20 13 10:24AM BY NGUYEN MAGAÑA MA, OFFICE VISIT;WO JAIME ONE A DAY Not Available Not Available Not Available Flovent HFA TWO TIMES DAILY 11/26 completed RECORDED 11/27/19 13 3:50PM BY TRELL FONTANEZ MA, OFFICE VISIT; Not Available Not Available Not Available ProAir HFA 90 mcg/actua tion aerosol inhaler Inhale 2 puffs every 4 hours by inhalati on route as needed. 10/04 completed Not Available Not Available Not Available peg 3350-elec trolytes 236 gram-22.7 4 gram-6.74 gram-5.86 gram solution 10/19 completed Not Available Not Available Not Available peg 3350 240 gram-elec trolytes 22.72 gram-6.72 g-5.84 g powdr for soln 07/27 completed Not Available Not Available Not Available cholecalc iferol (vitamin D3) 1,250 mcg (50,000 unit) capsule Take 1 capsule every week by oral route for 84 days. 02/22 completed Not Available Not Available Not Available Voltaren 1 % topical gel Apply 1 g as needed by topical route for 30 days. 04/17 completed Not Available Not Available Not Available Aczone 5 % topical gel Apply 1 applicat ion twice a day by topical route as needed for 25 days. 04/17 completed Not Available Not Available Not Available cholecalc iferol (vitamin D3) 75 mcg (3,000 unit) tablet Take 1 tablet every day by oral route. active Not Available Not Available No t Available Virtussin AC 10 mg-100 mg/5 mL oral liquid 04/17 completed Not Available Not Available Not Available biotin 50 mcg tablet Take 1 tablet every day by oral route. 07/27 completed Not Available Not Available Not Available Readi-Cat 2 2 % (w/v) oral suspensio n 09/02 completed Not Available Not Available Not Available Ozempic 0.25 mg or 0.5 mg (2 mg/1.5 mL) subcutane ous pen injector INJECT 0.5MG EVERY WEEK BY SUBCUTAN EOUS ROUTE 02/22 completed [email or web address] Not Available Not Available Not Available turmeric daily active Not Available Not Avai lable Not Available Vitals Date Recorded Body height Body mass index (BMI) Body weight Heart rate Oxygen saturation Oxygen saturation in Arterial blood by Pulse oximetry Body temperature Systolic blood pressure Diastolic blood pressure Provider Name and Address Organization Details Last Updated DateTime 5 172.72 cm 42.3 kg/m2 266727. 68 g 77 /min 98 % 98 % 98.2 [degF] 143 mm[Hg] 88 mm[Hg] Nguyen stewart MA [facility] 5 10:47:18 Date Recorded Body height Body mass index (BMI) Body weight Oxygen saturation Oxygen saturation in Arterial blood by Pulse oximetry Heart rate Body temperature Systolic blood pressure Diastolic blood pressure Provider Name and Address Organization Details Last Updated DateTime 3 172.72 cm 39.7 kg/m2 311568. 71 g 99 % 99 % 90 /min 97.7 [degF] 122 mm[Hg] 77 mm[Hg] Sushila Costello MA [facility] 3 10:01:09 Date Recorded Systolic blood pressure Diastolic blood pressure Provider Name and Address Organization Details Last Updated DateTime 08/28/2024 148 mm[Hg] 98 mm[Hg] MIRNA GALINDO MD [address] [address], [place], [address], [facility] 08/28/2024 14:55:50 Date Recorded Body height Body mass index (BMI) Body weight Heart rate Oxygen saturation Oxygen saturation in Arterial blood by Pulse oximetry Body temperature Systolic blood pressure Provider Name and Address Organization Details Last Updated DateTime 5 172.72 cm 42.3 kg/m2 538376. 68 g 85 /min 98 % 98 % 97.3 [degF] 147 mm[Hg] Samia Walters MA [facility] 5 13:33:07 Date Recorded Body height Body mass index (BMI) Body weight Oxygen saturation Oxygen saturation in Arterial blood by Pulse oximetry Heart rate Body temperature Systolic blood pressure Diastolic blood pressure Provider Name and Address Organization Details Last Updated DateTime 3 172.72 cm 41.4 kg/m2 733922. 12 g 99 % 99 % 82 /min 97.8 [degF] 153 mm[Hg] 89 mm[Hg] Sushila Costello MA [facility] 3 11:37:16 Date Recorded Body height Body mass index (BMI) Body weight Oxygen saturation Oxygen saturation in Arterial blood by Pulse oximetry Heart rate Body temperature Systolic blood pressure Diastolic blood pressure Provider Name and Address Organization Details Last Updated DateTime 4 172.72 cm 43.8 kg/m2 479846. 6 g 98 % 98 % 96 /min 98 [degF] 125 mm[Hg] 81 mm[Hg] Sushila Costello MA [facility] 4 13:23:19 Social History Question Answer Notes LastModified by Organizat ion Details LastModified Time Tobacco Smoking Status Former Smoker JESÚS Cervantes, [facility] 01/05/2020 08:45:45 Do You Have An Advance Directive? Yes [email or web address] Information not available 02/22/2022 Is Blood Transfusion Acceptable In An Emergency? Yes Information not available 11/27/2014 What Is Your Level Of Caffeine Consumption? Moderate Diet Soda, 2 Per Day Information not available 08/28/2024 How Much Tobacco Do You Chew? None Information not available 11/27/2014 What Type Of Diet Are You Following? REGULAR Information not available 08/07/2014 Which Illicit Or Recreational Drugs Have You Used? None Information not available 11/27/2014 When Did You Quit Smoking? 16+yearssinc elastcigaret te Information not available 07/15/2021 Live Alone Or With Others? Alone [email or web address] Information not available 02/22/2022 Do You Take Precautions To Prevent Distracted Driving? Yes Information not available 11/27/2014 How Often Do You Need To Have Someone Help You When You Read Instructions, Pamphlets, Or Other Written Material From Your Doctor Or Pharmacy? Never Information not available 11/27/2014 Have You Served In The ? No Information not available 06/06/2016 Have You Or Anyone In Your Household Had Any Of The Following Symptoms In The Last 14 Days: Sore Throat, Cough, Chills, Body Aches For Unknown Reasons, Shortness Of Breath For Unknown Reasons, Loss Of Smell, Loss Of Taste, Fever At Or Greater Than 100 Degrees Fahrenheit? No Information not available 01/05/2020 Are You Or Anyone In Your Household A Health Care Provider Or Emergency Responder? No Information not available 01/05/2020 To The Best Of Your Knowledge Have You Been In Close Proximity To Any Individual Who Tested Positive For COVID-19? No Information not available 01/05/2020 What Was The Date Of Your Most Recent Tobacco Screening? 08/28/2024 Information not available 08/28/2024 How Many Children Do You Have? 0 Information not available 11/27/2014 What Is Your Current Pack Years? 10packyears Information not available 08/28/2024 Do You Use Protection During Sex? No Information not available 11/27/2014 Do You Use Your Seat Belt Or Car Seat Routinely? Yes Information not available 07/15/2021 Seat Belts Used Routinely Yes [email or web address] Information not available 02/22/2022 Are You Sexually Active? No Information not available 01/05/2020 Smoke Alarm In Home Yes [email or web address] Information not available 02/22/2022 Do You Have Smoke And Carbon Monoxide Detectors In Your Home? Yes Information not available 07/15/2021 At What Age Did You Start Smoking Tobacco? 17 Information not available 01/05/2020 Are You Passively Exposed To Smoke? No Information not available 11/27/2014 How Much Tobacco Do You Smoke? 0.5 PPD Information not available 08/28/2024 Do You Use Sunscreen Routinely? No Information not available 11/27/2014 How Many Years Have You Smoked Tobacco? 10 Information not available 07/15/2021 Sex: Unknown Functional Status Question Answer Note LastModified by Organizat ion Details LastModified Time Do you use any illicit or recreational drugs? No Information not available 08/28/2024 What is your level of alcohol consumption? None Information not available 08/28/2024 Do you or have you ever used smokeless tobacco? Never used smokeless tobacco Information not available 01/05/2020 Are you currently employed? Yes Information not available 08/07/2014 Are you able to walk? YESWOREST [email or web address] Information not available 02/22/2022 Are you able to care for yourself? 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 Never used electronic cigarettes [email or web address] Information not available 02/22/2022 What is your exercise level? Occasional walking Information not available 01/05/2020 Mental Status None recorded. Family History Relationship Description Onset Age of this Age Resolved Age Notes LastModified by Organization Details LastModified Time Mother Diabetes mellitus [email or web address] s Not available 08/07/2014 16:05:21 Mother Primary malignant neoplasm of pancreas 71 [email or web address] Not available 02/22 11:29:02 Father Cerebrovascu lar accident [email or web address] s Not available 01/05/2020 08:45:44 Sister Primary malignant neoplasm of colon 61 [email or web address] Not available 02/22 11:29:02 Sister Chronic obstructive pulmonary disease [email or web address] s Not available 01/05/2020 08:45:44 Sister Arthritis [email or web address] s Not available 01/05/2020 08:45:44 Unspecified Relation Harmful pattern of use of alcohol [email or web address] s Not available 01/05/2020 08:45:44 Unspecified Relation Obesity [email or web address] Not available 11:21:18 Brother Cerebrovascu lar accident [email or web address] Not available 07/15/2021 11:21:18 Brother Substance abuse [email or web address] s Not available 01/05/2020 08:45:44 Medical History Condition Response Coronary Artery Disease N Gout N Other N Blood Diseases N Kidney Stones N Hyperthyroidism N Breast Cancer N mrsa exposure N Lung Disease N Hypothyroidism N Depression Y COPD N Defects or Inherited Disease N Developmental or Behavioral Disorders N Breast Problem N Anesthesia Complications N Headaches/Migraines N Varicose Veins N Anxiety Disorder N Muscle, Joint, or Bone Problems N Obesity Y Vision or Eye Problems N Arthritis Y Head Injury/Concussion N Infertility N Polyps N Mental Disorder N Congenital Anomalies N Acid Reflux (GERD) N Cancer N Stroke N ADHD N Endometriosis N High Cholesterol N Liver Disease N Headaches N Fibromyalgia N Kidney Disease N Heart Problems N Ear or Hearing Problems N Hospitalizations N Thyroid Problems N GI Problems N Developmental Delay N Acne Y Eating Disorder N Skin Problems N Anemia N Constipation N Bladder Problems N Mental Illness N Diabetes N Ovarian Cancer N Bedwetting N Blood Transfusions N Heart Problems/Murmur N Seizures/Epilepsy N Tuberculosis N AIDS/HIV N Congestive Heart Failure (CHF) N Eczema N Abuse/Domestic Violence N Diverticulitis N Asthma N Allergies N Reflux/GERD N Hepatitis N Heart Disease N Pulmonary Embolism N Hypertension Y Chicken Pox N Autism Spectrum Disorder (ASD) N Osteoporosis N Gynecological History Statement/Question Response Date of Last Pap Smear 09/28/2017 Date of Last Colonoscopy 09/30/2021 Most Recent Mammogram 11/15/2023 Obstetrics History GPAL:G 0 P 0 0 0 0 Immunizations Vaccine Type Date Status Note Provider Name and Address Organization Details Recorded Time Influenza, split virus, trivalent, preservative 01/22/20 16 completed Not Available [facility] 01/10/2022 02:26:40 COVID-19, mRNA, LNP-S, PF, 100 mcg/0.5mL dose or 50 mcg/0.25mL dose 04/29/19 21 completed Not Available [facility] 01/10/2022 02:26:40 COVID-19, mRNA, LNP-S, PF, 100 mcg/0.5mL dose or 50 mcg/0.25mL dose 03/08/20 21 completed Not Available [facility] 01/10/2022 02:26:40 Tdap 12/04/19 18 completed JESÚS Flores [facility] 04/05/2022 09:32:32 Influenza, split virus, quadrivalent, PF 01/05/20 20 completed JESÚS Flores [facility] 04/05/2022 09:32:32 Influenza, split virus, quadrivalent, PF 01/19/20 18 completed JESÚS Flores [facility] 04/05/2022 09:32:32 Influenza, split virus, quadrivalent, PF 04/17/20 17 completed JESÚS Flores [facility] 04/05/2022 09:32:32 COVID-19, mRNA, LNP-S, PF, 100 mcg/0.5mL dose or 50 mcg/0.25mL dose 06/01/19 21 completed JESÚS Flores [facility] 04/05/2022 09:40:12 Influenza, split virus, quadrivalent, PF 02/23/20 22 completed JESÚS Flores [facility] 04/05/2022 09:40:13 Influenza, split virus, trivalent, PF 04/07/20 24 cancelled patient objection MIRNA GALINDO MD [address] [address], [place], [address], [facility] 04/07/2024 13:48:38 Past Encounters Encounter ID Performer Location Encounter Start Date Encounter Closed Date Diagnosis/Indication Diagnosis SNOMED-CT Code Diagnosis ICD10 Code Diagnosis Note [id number] autoEComm erce [id number] [facility],[address] [place] [address] 04/17/2007 00:00:00 [id number] autoEComm erce [id number] [facility],[address] [place] [address] 05/01/2006 00:00:00 [id number] autoEComm erce [id number] [facility],[address] [place] [address] 10/09/2008 00:00:00 [id number] autoEComm erce [id number] [facility],[address] [place] [address] 12/08/2008 00:00:00 [id number] autoEComm erce [id number] [facility],[address] [place] [address] 01/26/2009 00:00:00 [id number] autoEComm erce [id number] [facility],[address] [place] [address] 06/23/2009 00:00:00 [id number] autoEComm erce [id number] [facility],[address] [place] [address] 07/06/2009 00:00:00 [id number] autoEComm erce [id number] [facility],[address] [place] [address] 09/28/2009 00:00:00 [id number] autoEComm erce [id number] [facility],[address] [place] [address] 10/19/2010 00:00:00 [id number] autoEComm erce [id number] [facility],[address] [place] [address] 12/08/2010 00:00:00 [id number] autoEComm erce [id number] [facility],[address] [place] [address] 08/31/2011 00:00:00 [id number] autoEComm erce [id number] [facility],[address] [place], [place] [address] 11/20/2012 00:00:00 [id number] autoEComm erce [id number] [facility],[address] [place], [place] [address] 11/26/2012 00:00:00 [id number] autoEComm erce [id number] [facility],[address] [place], [place] [address] 01/13/2013 00:00:00 [id number] autoEComm erce [id number] [facility],[address] [place], [place] [address] 04/04/2013 00:00:00 [id number] Gary Howard MD Main Office [address] [address] [place], [place] [address] 08/07/2014 15:46:57 08/07/2014 16:42:08 Inflammation of sacroiliac joint 61248404 Greater tr ochanteric pain syndrome 6894556 Body mass index 40+ - severely obese 243748985 [id number] Gary Howard MD Main Office [address] [address] [place], [place] [address] 11/27/2014 15:48:54 11/27/2014 16:47:12 Major depression single episode, in partial remission 56365156 Greater tr ochanteric pain syndrome 9950796 [id number] Gary Howard MD Main Office [address] [address] [place] [address] 12/01/2015 09:12:35 12/01/2015 10:15:19 Greater trochanteric pain syndrome 8631455 M70.60 bilateral Elevated blood-pressure reading without diagnosis of hypertension 264361120 R03.0 Blood pressure in the pre-hypert ensive range. Discussed management of cardiovasc ular risks and strategies to control BP. Hyperlipidemia 84532962 E78.0 Fatigue 42271355 R53.83 Body mass index 40+ - severely obese 190677491 Z68.41 [id number] Gary Howard MD Main Office [address] [address] [place], [place] [address] 06/06/2016 09:48:00 06/06/2016 11:16:29 Elevated blood-pressure reading without diagnosis of hypertension 934771558 R03.0 Blood pressure in the pre-hypert ensive range. Discussed management of cardiovasc ular risks and strategies to control BP. Hyperlipidemia 89905164 E78.5 Fatigue 68225107 R53.83 Body mass index 40+ - severely obese 055073645 Z68.41 E66.01 [id number] Gary Howard MD Main Office [address] [place] [address] 04/17/2017 14:47:15 04/17/2017 16:05:26 Needs influenza immunization 455921901 Z23 Bursitis of shoulder 239 440892 M75.50 Hyperlipidemia 56865322 E78.5 Fatigue 98747038 R53.83 Elevated blood-pressure reading without diagnosis of hypertension 464207446 R03.0 Blood pressure in the pre-hypert ensive range. Discussed management of cardiovasc ular risks and strategies to control BP. Screening for malignant neoplasm of colon 594357234 Z12.11 [id number] Maximo Redman PA-C Main Office [address] [address] 08/14/2017 10:30:46 08/14/2017 11:31:19 Elevated blood-pressure reading without diagnosis of hypertension 830728685 R03.0 bp normalized now that stress levels are better Body mass index 40+ - severely obese 496830607 Z68.41 [id number] Maximo Redman PA-C Main Office [address] [place] [address] 09/19/2017 14:54:15 09/19/2017 16:19:25 Cough 02026007 R05 cough x few wks, no cxr at [facility] - will check cxr to r/o pna - will give abx if +, rec stop tessalon rather use darek, could stop singulair (more so for allergies which she does not have a h/o) 25 minute office visit with greater than 50% of the visit face-to-fa ce with the patient and/or family providing counseling and/or coordinati on of care. Dyspnea 207307741 R06.00 c wheezing last wk, getting prog better (no more sob) but still heard mild wheezing on exam today -- will give proair in case sxs acutely worsen [id number] Maximo Redman PA-C Main Office [address] [address] [place] [address] 10/04/2017 11:21:24 10/04/2017 12:35:07 Patellofemoral stress syndrome 268630158 M22.2X9 Pt has been increasing exercise regimen a lot, exercising with Cross[employer] everyday at times. This likely aggravated knees - see below. Edema of knee 595874462 R60.0 Bilateral, worse on L Body mass index 40+ - severely obese 394952503 Z68.41 Working on healthy diet, doing Weight watchers and exercising Pain in right knee 00464 29877 21183 M25.561 mild, but pt requests check B sides - worried about OA - sister had TKR recently Pain in left knee 401755 6388 68114 M25.562 dennis painful post knee - see below Synovial c yst of popliteal space 42113159 M71.20 L>R. advised pt to sig back off of crossfit ex - dennis squats, rolling tires, jumping willl get pssp eval [id number] Gary Howard MD Main Office [address] [address] [place] [address] 12/03/2017 10:34:29 12/03/2017 11:46:30 Screening for malignant neoplasm of colon 514765804 Z12.11 Active or passive immunization 434483248 Z23 Essential hypertension 44896691 I10 Hyperlipidemia 02730449 E78.5 [id number] Gary Howard MD Main Office [address] [address] [place] [address] 01/18/2018 12:32:18 01/18/2018 13:43:24 Screening for malignant neoplasm of cervix 165352899 Z12.4 Needs infl uenza immunization 222940335 Z23 Screening for malignant neoplasm of colon 352498242 Z12.11 Knee pain 64839357 M25.5 61 MCL strain versus meniscal injury and loose body on XRAY [id number] Maximo Redman PA-C Main Office [address] [address] [place] [address] 02/07/2018 10:24:25 02/07/2018 11:15:39 Essential hypertension 87354628 I10 bp normalized now that stress levels are better - cont med as dir Derangemen t of right knee 4590713882 9996254 M23.91 cont f/u c ortho - pending mri, is oow [id number] Maximo Redman PA-C Main Office [address] [facility] [address] [place] [address] 03/18/2018 14:56:43 03/18/2018 15:59:48 Essential hypertension 47978412 I10 bp stable, cont med as dir Pain in right knee 52988 14296 41079 M25.561 better lately, just had mri - pending f/u c neos 11.30 Major depr essive disorder 952711035 F32.9 cont f/u c therapist q wk will give trial of wellbutrin at pt/therapi st request - rev risks/bene fits [id number] Mingo Lugo MD Main Office [address] [address] [place] [address] 05/21/2018 09:22:06 05/21/2018 10:13:43 Essential hypertension 58805610 I10 bp stable, cont med as dir Pain in right knee 45831 24983 87231 M25.561 cont f/u c neos Major depr essive disorder 159752828 F32.9 cont f/u c therapist q wk will increase med and cont to monitor [id number] Gary Howard MD Main Office [address] [address] [place] [address] 07/27/2018 09:11:55 07/27/2018 10:13:17 Adult health examination 046191497 Z00.00 Essential hypertension 37283808 I10 Body mass index 40+ - severely obese 855303004 E66.01 Z68.41 Major depr ession single episode, in partial remission 24407889 F32.4 Continue bupropion. declines change in therapy Hyperlipidemia 00114159 E78.5 Fatigue 02913170 R53.83 Vitamin D deficiency 347 39467 E55.9 Family his tory of cancer of colon 490138182 Z80.0 sister [id number] Gary Howard MD Main Office [address] [address] [place] [address] 01/05/2020 08:35:34 01/05/2020 09:38:35 Adult health examination 234656673 Z00.00 Essential hypertension 14552095 I10 Hyperlipidemia 46476610 E78.5 Needs infl uenza immunization 513872759 Z23 Major depr ession single episode, in partial remission 98171759 F32.4 Continue bupropion. declines change in therapy Body mass index 30+ - obesity 704710654 E66.01 Z68.35 Fatigue 21608735 R53.83 Greater tr ochanteric pain syndrome 6802707 M70.61 [id number] Gary Howard MD Main Office [address] [facility] [address] [place] [address] 02/09/2020 10:03:12 02/09/2020 11:24:32 Abdominal wall pain 264780082 R10.9 [id number] Rodney Jensen MD Main Office [address] [facility] [address] [place] [address] 07/15/2021 10:55:42 07/15/2021 12:25:29 Adult health examination 324870186 Z00.00 Physical done today. Social and family history reviewed. Immunizati ons reviewed, advised annual flu shot tdap up to date, no covid vaccines. She is upt to date on dental and due for eye exam, mammogram up to date, colon due, Reviewed diet and exercise, needs to work on better eating and doing some walking. Pt has a strong FH of breast, ovarian colon cancer in first and second degree relatives, will consider genetic testing. Screening for malignant neoplasm of colon 548890997 Z12.11 due for screening due to FH in sister, sees Dr Lees, had colon [id number] Essential hypertension 36751069 I10 increase amlodipine to 10 mg daily will refill at higher dose. Short term followup Major depr ession single episode, in partial remission 47943575 F32.4 pt doing ok, no meds needed at this time, call prn if sx flare Anemia due to unknown mechanism 88148904 D64.9 Screening for malignant neoplasm of breast 394797005 Z12.39 up to date Screening for malignant neoplasm of cervix 384913638 Z12.4 has appt in July, has FH ovarian and breast cancer, will discuss with counter installer Right flank pain 2132276 09 R10.9 Right lowe r quadrant pain 697944814 R10.31 Due to ongoing sx for a year will do CT , tender for a year, cannot sleep on that side, cannot bend over, limits ADLs R/o mass vs hernia Body mass index 40+ - severely obese 350823654 E66.01 Z68.41 pt will consider choices, work on diet [id number] Rodney Jensen MD Main Office [address] [facility] [address] [place] [address] 09/02/2021 08:57:00 09/02/2021 09:53:04 Essential hypertension 46416428 I10 increased amlodipine to 10 mg daily and this is working well, continue present dose, check in 6 weeks Abdominal wall pain [address] negative, labs normal, will be seeing GI ? muscular no evidence of hernia. Body mass index 40+ - severely obese 902283371 E66.01 Z68.41 15 min discussion regarding snacking, better food choice, being more active and possibly using ozempic if prediabeti c to help with wt loss. Labs pending Family his tory of breast cancer 623084740 Z80.3 Vitamin D deficiency 347 58909 E55.9 [id number] Angelica mujica MD Main Office [address] [facility] [address] [place] [address] 10/19/2021 09:42:50 10/19/2021 10:40:17 Essential hypertension 58571487 I10 I had increased amlodipine to 10 mg daily and this is working well, continue present dose, check in 3 mos Abdominal wall pain [address] negative, labs normal, pt had colonoscop y, normal exam but biopsies pending Body mass index 40+ - severely obese 729937374 E66.01 Z68.41 15 min discussion regarding snacking, better food choices, pt is doing well. lsoing and exercising Prediabetes 468289577 R7 3.03 start ozempic 0.25 weekly for 4 week, then 0.5 mg weekly fo 4 weeks then followup and will adjust as needed. Likely needs 1 mg weekly. Side effects reviewed. Pt does not have any hx or family hx of thyroid or endocrine tumors/can cers. Vitamin D deficiency 347 40064 E55.9 recheck labs after finishing 12 weeks high dose treatment. [id number] Angelica mujica MD Main Office [address] [facility] [address] [place] [address] 02/22/2022 11:27:45 02/22/2022 12:33:00 Essential hypertension 03399228 I10 having edema with amlodipine , will switch to lisinopril Body mass index 40+ - severely obese 665032201 E66.01 Z68.41 Pt will be getting med through an outside provider , paying out of pocket Prediabetes 435349420 R7 3.03 lab stable, keep up work with diet and exercise pt will be seeing someone in the shot shop for treatment with semaglutid e which has worked well for wt loss in the past. Vitamin D deficiency 347 69440 E55.9 recheck labs after finishing 12 weeks high dose treatment. Needs infl uenza immunization 141683092 Z23 [id number] Angelica mujica MD Main Office [address] [facility] [address] [place] [address] 04/05/2022 09:28:39 04/05/2022 10:26:20 Prediabetes 317440494 R73.03 lab stable, keep up work with diet and exercise pt is seeing someone in the shot shop for treatment with semaglutid e which is working well. Vitamin D deficiency 347 74036 E55.9 recheck labs after finishing 12 weeks high dose treatment. Essential hypertension 14552774 I10 BP ok today but due to edema will change to ARB. followup 1-2 mos, sooner if BP not controlled Body mass index 40+ - severely obese 532520542 E66.01 Z68.41 Pt is semaglutid e through an outside provider , paying out of pocket, working on diet and exercise Edema of l eft lower leg 983923860 R60.0 Check US , if negative consider surgeon or derm eval for soft tissue swelling left ant leg [id number] Juanita herrera, DIRECTOR OF HOTEL OPERATIONS Main Office [address] [facility] [address] [place] [address] 07/17/2022 09:52:03 07/17/2022 10:47:17 Essential hypertension 39865381 I10 BP is better controlled , will get new cuff and call if readings > 135/85 stay on present meds. Obesity 946443418 E66.9 pt doing great, down 19 pound and motivated to continue with diet changes. Now BMI less than 40 Major depr ession single episode, in partial remission 76395423 F32.4 pt doing ok, no meds needed at this time, call prn if sx flare see screening, pt states no need for interventi on at this time. [id number] MIRNA GALINDO MD Main Office [address] [facility] [address] [place] [address] 12/26/2022 11:17:38 12/26/2022 11:49:14 Essential hypertension 80332582 I10 - not at goal- BP today 153/89- BP at home also elevated- pt was on amlodipine 10mg but it was stopped due to lower extremity swelling and lisinopril but this was stopped due to cough- increased valsartan 80mg BID QD- RTC in 4 weeks Pt counselled on:-Dietar y Approaches to Stop Hypertensi on (DASH) is an eating plan rich in fruits, vegetables , whole grains, fish, poultry, nuts, legumes, and low-fat dairy. These foods are high in sweet nutrients such as potassium, magnesium, calcium, fiber, and protein.-A dvised continued adherence to medication s and low salt diet - extensive counsellin g done regarding dietary habits.-En couraged regular aerobic exercise 30 min for 4-5 x week.-BP monitoring at home advised to bring log at every visit-Side -effects of high BP can cause Stroke, Heart attack and even d/w pt-D/w pt when to call 911 or reach out to Health care provider:> Think you are having a reaction to a medicine you are taking.>Lanier ve headaches that keep coming back (recurring ).>Feel dizzy.>Hav e swelling in your ankles.>Lanier ve trouble with your vision. Body mass index 40+ - severely obese 042431042 E66.01 Z68.41 - BMI is 41.1- Cut down on (limit) fast foods, sweets, and processed snack foods.- Limit alcohol intake to no more than 1- 2 drinks a day for men. One drink equals 12 oz of beer, 5 oz of wine, or 1 oz of hard liquor.- Keep a weight loss journal and keep track of the food and portions that you eat.- The exercise that you do- 4 times a week or 150 minutes cumulative of moderate exercise julián prakash [id number] MIRNA GALINDO MD Main Office [address] [facility] [address] [facility] [place] [address] 04/07/2024 13:14:58 04/07/2024 13:41:02 Essential hypertension 32508131 I10 - at goal- BP today 125/81- pt was on amlodipine 10mg but it was stopped due to lower extremity swelling and lisinopril but this was stopped due to cough- c/w valsartan 80mg BID QD Pt counselled on:-Dietar y Approaches to Stop Hypertensi on (DASH) is an eating plan rich in fruits, vegetables , whole grains, fish, poultry, nuts, legumes, and low-fat dairy. These foods are high in sweet nutrients such as potassium, magnesium, calcium, fiber, and protein.-A dvised continued adherence to medication s and low salt diet - extensive counsellin g done regarding dietary habits.-En couraged regular aerobic exercise 30 min for 4-5 x week.-BP monitoring at home advised to bring log at every visit-Side -effects of high BP can cause Stroke, Heart attack and even d/w pt-D/w pt when to call 911 or reach out to Health care provider:> Think you are having a reaction to a medicine you are taking.>Lanier ve headaches that keep coming back (recurring ).>Feel dizzy.>Hav e swelling in your ankles.>Lanier ve trouble with your vision. Fatigue 06428238 R53.83 Z00.00 Hyperlipidemia 45095763 E78.5 Z00.00 FASTING Iron defic iency anemia 12380421 D50.9 - hx of LYNDON- pt is on ferrous sulfate- will recheck levels Vaccine de clined by patient 7221602884 02 Z28.21 Atypical chest pain 1025 67427 R07.89 - located on the left side> sometimes right side- last seconds and there is a tenderness - ordered pharmacolo gical stress test -> cannot tolerate exercise stress test [id number] Mingo Lugo MD Main Office [address] [facility] [address] [facility] [place] [address] 06/23/2024 10:20:16 06/23/2024 11:29:55 Right lower quadrant pain 958347496 R10.31 has had intermitte ntly x few yrs - had ~ nl ct scan 4.22rec f/u c counter installer for ? fibroids have gotten bigger over time?rec f/u c gisee below Diarrhea 05337968 R19.7 check stool studies to r/o infectious etiology - rx if + Constipation 12602063 K5 9.00 see above - ? has underlying constipati on (whether or not baseline constipati on and/or d/t fibroids) --- ? has overflow diarrhea abovecont fiber, water, exercise - but consider adding colace qd if below w/u is + === check axrmeanwhi le - rec less bananas [id number] MIRNA GALINDO MD Main Office [address] [facility] [address] [facility] [place], [place] [address] 08/28/2024 13:15:48 08/28/2024 14:03:45 General examination of patient [id number] Z00.00 Health Maintenanc e FemaleA) Patient was counseled on healthy diet, exercise and nutrition due to BMI of 42.3 B) ScreeningL ast Mammogram: start at age 50 stop at 75Date: 4R esult: BIRADS-1Ne xt: 10/2024 Last Pap smear: start at age 21 to age 65Date: 09/28/2017Re sults: atrophy, hpv negative, no atypical cellsNext: DUE (had one two years ago, will request) Last Colonoscop y: start at age 45-75Date: 2R esult: normalNext : 10 years Last DEXA scan:Date: due at 66Result: ??? C) Vaccines:I nfluenza: refusedTdA P: 12/03/2017Z brittney: orderedPCV 20: orderedCOV ID: 04/29/2020, 06/01/2020, 03/08/2021 D) Routine blood work orderedE) Updated patient's history RTC in one year for annual exam or sooner if any acute complaints Essential hypertension 46612163 I10 - elevated> pt has been forgetting to take her night time dose of valsartan- BP today 148/98- pt was on amlodipine 10mg but it was stopped due to lower extremity swelling and lisinopril but this was stopped due to cough- ordered valsartan 160mg QD as patient is not compliant with valsartan 80mg BID -> she will remember if taken once in the AM Pt counselled on:-Dietar y Approaches to Stop Hypertensi on (DASH) is an eating plan rich in fruits, vegetables , whole grains, fish, poultry, nuts, legumes, and low-fat dairy. These foods are high in sweet nutrients such as potassium, magnesium, calcium, fiber, and protein.-A dvised continued adherence to medication s and low salt diet - extensive counsellin g done regarding dietary habits.-En couraged regular aerobic exercise 30 min for 4-5 x week.-BP monitoring at home advised to bring log at every visit-Side -effects of high BP can cause Stroke, Heart attack and even d/w pt-D/w pt when to call 911 or reach out to Health care provider:> Think you are having a reaction to a medicine you are taking.>Lanier ve headaches that keep coming back (recurring ).>Feel dizzy.>Hav e swelling in your ankles.>Lanier ve trouble with your vision. Atypical chest pain [id number] R07.89 - stable- most likely coming from anxiety- located on the left side> sometimes right side- last seconds and there is a tenderness - pharmacolo gical stress test is normal Iron defic iency anemia 72630480 D50.9 - hx of LYNDON- pt is on ferrous sulfate- will recheck levels Fatigue 20372309 R53.83 Z00.00 Hyperlipidemia 45829382 E78.5 Z00.00 - ASCVD score of 4.4%- lipid panel 03/2024: cholestero l-216, triglyceri andrea-93, HDL-73, LDL-127- ordered repeat levels Pt counselled on:- Eat a heart-heal thy diet- Choose healthy fats. Avoid saturated fats that are found primarily in red meat, shepard, sausage, and full-fat dairy products. Advised to choose lean proteins like chicken, turkey, and fish when possible. Switch to low-fat or fat-free dairy. And use monounsatu rated fats like olive and canola oil for cooking.- Cut out the trans fats. Trans fats are found in fried food and processed foods, like cookies, crackers, and other snacks.- Eat more omega-3s. Counseled on eating more fish, including salmon, mackerel, padilla ,nuts and seeds, like walnuts and flax seeds.- Increase your fiber intake. By eating more oats, brain, fruits, beans, and vegetables , can lower your LDL cholestero l levels.- Eat more fruits and veggies. Screening for malignant neoplasm of cervix 014589438 Z12.4 Administra tion of pneumococcal vaccine 01459699 Z23 Varicella vaccination 68 418498 Z23 Viral scre ening status 095137553 Z11.59 Edema of l ower extremity 194067072 R60.0 - left side more than right side- venous insufficie ncy vs lymphedema - ordered ultrasound of the lower extremity> if normal will refer to OT ([facility]) Morbid obesity 530171190 E66.01 - BMI is 41.1- Cut down on (limit) fast foods, sweets, and processed snack foods.- Limit alcohol intake to no more than 1- 2 drinks a day for men. One drink equals 12 oz of beer, 5 oz of wine, or 1 oz of hard liquor.- Keep a weight loss journal and keep track of the food and portions that you eat.- The exercise that you do- 4 times a week or 150 minutes cumulative of moderate exercise recommende d. Body mass index 40+ - severely obese 231136819 E66.01 - BMI is 42.3- Cut down on (limit) fast foods, sweets, and processed snack foods.- Limit alcohol intake to no more than 1- 2 drinks a day for men. One drink equals 12 oz of beer, 5 oz of wine, or 1 oz of hard liquor.- Keep a weight loss journal and keep track of the food and portions that you eat.- The exercise that you do- 4 times a week or 150 minutes cumulative of moderate exercise recommende d. Health Concerns Section Related Observation LastModified by Organization Detai ls LastModified Time None Recorded Concern Status LastModified by Organization Details LastModified Time None Recorded Advance Directives Directive Y: Payers Insurance Date Sequence Insurance Name Policy Number Policy Holden Covered Member ID Holden Member ID Guarantor Name 09/17/2024 1 [facility] (POS) Van Galan [id number] Van Nunez 12/26/2022 1 [facility] (O) [id number] Van Nunez [id number] Van Nunez 12/26/2022 1 [facility] (POS) [id number] Van Galan [id number] Van Nunez 12/26/2022 2 [facility] (O) Van Nunez [id number] Van Nunez 12/26/2022 1 [facility] - NAVIGATOR [facility] [id number] Van Nunez [id number] Van Nunez Notes Date Note Type Note Provider Name and Address Organization Details Recorded Time 07/17/2022 text/html Pt here to check BP, she had cough with lisinopril, now has edema with amlodipine and is now on valsartan 80 mg. Hs some tingling sl dizzy, will take at night to see if this is better. Pt on healthy eating plan stopped semaglutide. . Wt is down 19 pounds Feeling well.BP readings elevated at home, has a small cuff.JERSON 7 and PHQ9 up a little, will continue to monitor. Juanita salter [facility] 08/02/2022 07:51:47 12/26/2022 text/html Hypertension F/UReported bypatient.Notes:Patien t here for follow-up of elevated blood pressure. Pt is not exercising and is not adherent to a low-salt diet. Blood pressure is not well controlled at home. Cardiac symptoms: headaches. Patient denies: chest pain, lower extremity swelling, heart palpitations. Cardiovascular risk factors: HLD, obesity. Use of agents associated with hypertension: none. History of target organ damage: none. BP at home never goes below a systolic of 130. Van Nunez is a 57 year old F who presented to the clinic for a blood pressure check. Pt mentions in the last few weeks she has noticed that her blood pressure has been higher than usual and she as been getting more frequent headaches associated with this. MIRNA GALINDO MD [address] [facility] [address], [place], [address], [facility] 12/26/2022 12:16:22 04/07/2024 text/html Angina/Chest PainReported bypatient.Location:[facility] Quality:tightness Severity:not limiting Duration:lasts seconds Onset/Timing:intermitt ent Context:exertional;at rest Aggravating Factors:nothing makes it worseHypertension F/UReported bypatient.Notes:Patien t here for follow-up of elevated blood pressure. Pt is not exercising and is not adherent to a low-salt diet. Blood pressure is not well controlled at home. Cardiac symptoms: headaches. Patient denies: chest pain, lower extremity swelling, heart palpitations. Cardiovascular risk factors: HLD, obesity. Use of agents associated with hypertension: none. History of target organ damage: none. Van Nunez is a 58 year old F who presented to the clinic for a blood pressure check. On 12/27/2023, pt valsartan was increased to 80mg to 160mg QD. Pt today is complaining of left sided chest pain, intermittent. MIRNA GALINDO MD [address] [address], [place], [address], [facility] 04/07/2024 13:52:15 06/23/2024 text/html pt here for abdo nyla pain/diarrhea -- no 30 min avail as per recent pt case:PT called stating she is experiencing abdominal pain diarrhea and frequent urination unsure if she should go to ER or be seen in office we are also short on 30 MIN APPT TY please adviseCalled and spoke with pt, pt states she has a history of a hernia. Pt reports on and off diarrhea. Pt reports pain has been for about 2-3 weeks. She reports when she wears her uniform and belt it causes additional pain due to pressing up again her abdomen. She reports last bm was 06/19 which was loose. Denies fever. Denies hematuria or bloody stools. Pt reports she is eating and drinking with no issues. Patient c/o RLQ abdominal pain, which has been getting worse. Symptoms include loose stools.She had a CT scan in July 2021, which showed umbilical hernia and posterior uterine fibroids. ----- reviewed chart - had nl colon 6.22 - next in 10 yrsshe has not seen counter installer in a long time - never had fibroids removedrev 4.22 ct scan - had similar sxs back then - had ~ nl ct, no hernia (not small bowel, was small fat containing) - advised by KK to f/u c gi - pt did not ave bm qod - looseeats plenty of fiber, drinks a lot of waterhas lost wt intentionally lately thru diet/ex (no unintentional wt loss) Maximo Redman PA-C [address] [address], [place], [address], [facility] 06/23/2024 13:22:30 08/28/2024 text/html Van Nunez is a 59 year old F who presents to the clinic for her annual exam. Pt denies any emergency room visits or hospitalizations during this time. Complaints: left leg swelling Is not using ASA.OTC/Herbal supplements use: turmeric, vitamin D, vitamin b12 and MMV Gynecologic HistoryPatient's last menstrual period was 5 years agoNo spottingSexually active: noContraception: menopause+ fibroidsDenies cysts, stds, abnormal pap smears Obstetric HistoryGravida: 0Para: 0AB: 0Complications: Drug use: neverEtoh use: stopped on year agotobacco use: stopped smoking, quit at 27 years old, started at 17, 1/2 packspf/derm: Dental: every 3 monthsEye: does not see (wears cheaters)Diet: regularActivity: none MIRNA GALINDO MD [address] [facility] [address], [place], [address], [facility] 08/28/2024 15:02:28 OBGyn Episode No OBEpisode recorded.
[2024-10-15 14:17] LABS: Alanine Aminotransferase 25 U/L (0-31); Albumin Level 4.5 g/dL (3.5-5.0); Alkaline Phosphatase 92 U/L (39-117); Aspartate Amino Transferase 32 U/L (5-31); Bilirubin Direct 0.3 mg/dL (0.0-0.5); Bilirubin Total 0.6 mg/dL (0.0-1.0); Lipase 29 U/L (8-78); Total Protein 7.3 g/dL (6.5-8.0)
== END 2024-10-15 11:56 | disposition home or self-care (01) ==
LOC: HO.10HDL 11:55
PROVIDERS: Visit Provider Internal Medicine Gastroenterology
DX: R10.11 Right upper quadrant pain (principal)
CPT/HCPCS: 36415; 80076; 83690; 85025

== ENCOUNTER 2024-12-03 10:14 | Outpatient (REF) | payer OTHER, SELFPAY ==
--- NOTE | ~2024-12-03 | US_ITS ---
EXAMINATION: US ABDOMEN HISTORY: RIGHT UPPER QUADRANT PAIN TECHNIQUE: Real-time grayscale ultrasound imaging of the abdomen was performed and images were reviewed. COMPARISON: There are no prior studies available for comparison. FINDINGS: Liver: The right lobe of the liver measures 12.5 cm in size. The left lobe of the liver measures 7.5 cm in size. The liver demonstrates slightly increased echotexture, consistent with steatosis. No focal mass or intrahepatic biliary ductal dilatation is identified. There is normal hepatopedal flow in the portal vein. Gallbladder and biliary tree: The gallbladder is unremarkable, without evidence of calculi, wall thickening, or pericholecystic fluid. There is no sonographic Henriquez sign. The common bile duct is normal in caliber measuring 2 mm. Kidneys: The right kidney measures 11.6 cm in length. The left kidney measures 12.4 cm in length and demonstrates a 4.2 x 3.6 x 3.7 cm cyst in the interpolar region. The kidneys are otherwise unremarkable, without evidence of solid masses, hydronephrosis, or calculi. Pancreas: The pancreatic head, neck, and body are unremarkable. The pancreatic tail is obscured by bowel gas. Spleen: The spleen is normal in size and contour, measuring 8.1 cm in length. Abdominal aorta and inferior vena cava: The visualized portions of the abdominal aorta and inferior vena cava are normal in caliber. There is no free fluid in the abdomen. US/US abdomen complete IMPRESSION: 1. Mild hepatic steatosis. 2. 4.2 x 3.6 x 3.7 cm left renal cyst. Electronically signed by: Shai Sims MD 12/03/2024 11:02 AM EDT
--- OUTSIDE RECORDS SUMMARY | 2024-12-03 10:56 | XMS_ITS | Patient Health Record ---
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 Name Role Phone Mirna Galindo Primary Care Provider Unavail able Jak Lees Jr Unavailable Allergies No Known Allergies Results Component Value Reference Range Notes Complete Blood Count Auto Di ff Reviewed date:10/21/2024 03:36:40 PM Interpretation: Performing Lab:[facility], [address] [place] [phone] Notes/Report: White Blood Count 5.6 4.8-10.8 X10*3/uL Red Blood Count 3.74 4.20-5.50 X10*6/uL Hemoglobin 11.9 12.0-16.0 g/dl Hematocrit 35.1 37.0-47.0 % Mean Corpuscular Volume 93.9 80.0-98.0 fL Mean Corpuscular Hemoglobin 31.8 27.0-33.0 pg Mean Corpuscular HGB Conc 33.9 31.0-35.0 g/dl Red Cell Distribution Width 13.0 11.0-16.0 % Platelet Count 292 160-400 X10*3/uL Mean Platelet Volume 9.4 9.4-12.3 fL Neutrophils Percent Auto 43.9 45-73 % Imm Gran Pct Auto 0.2 0.0-0.4 % Lymphocytes Percent Auto 41.4 20-40 % Monocytes Percent Auto 8.8 2-11 % Eosinophils Percent Auto 5.2 0-4 % Basophils Percent Auto 0.5 0-2 % NRBC Pct Auto 0.0 0.0-0.2 /100WBC Neutrophils Absolute Auto 2.4 2.0-8.3 x10*3/u L Imm Gran Abs Auto 0.01 0.00-0.03 X10*3/uL Lymphocytes Absolute Auto 2.3 1.2-4.9 X10*3/u L Monocytes Absolute Auto 0.5 0.1-1.2 X10*3/uL Eosinophils Absolute Auto 0.3 0.0-0.4 X10*3/u L Basophils Absolute Auto 0.0 0.0-0.2 X10*3/uL NRBC Abs Auto 0.000 0.0-0.012 X10*3/uL Liver Panel Reviewed date:10/21/2024 03:32:47 PM Interpretation: Performing Lab:[facility], [address] [place] [phone] Notes/Report: Bilirubin Total 0.6 0.0-1.0 mg/dL Bilirubin Direct 0.3 0.0-0.5 mg/dL Aspartate Amino Transferase 32 5-31 U/L Alanine Aminotransferase 25 0-31 U/L Total Protein 7.3 6.5-8.0 g/dL Albumin Level 4.5 3.5-5.0 g/dL Alkaline Phosphatase 92 39-117 U/L Lipase Reviewed date:10/21/2024 03:31:44 PM Interpretation: Performing Lab:[facility], [address] [place] [phone] Notes/Report: Lipase 29 8-78 U/L Reason For Referral Referring Provider First Name Maximo Referring Provider Last Name Redman Referred Organization [facility] Referred Provider Jak Lees Jr Referred Address [address] [place] [phone], Referred Provider Specialty Gastroentero logy General Notes Ale Tejada 2024 08:52:30 AM > left message with pt to make sure they have the same pcp and to request a eighty [employer] insurance referral for appt with Dr. Lees on 10-15-2024 from Maximo Redman's office [phone] Referral Priority Routine Medications Medication SIG (Take, Route, Fr equency, Duration) Notes Start Date End Date Status Vitamin D3 1000 UNIT 1 capsule Orally On ce a day for 30 day(s) Active Turmeric 500 MG as directed Orally once a day Active Valsartan 160 MG TAKE 1 TABLET BY LAINEY TH EVERY DAY Oral for 30 Days Active Vitamin B12 1000 MCG 1 tablet Orally Onc e a day for 30 day(s) Active Immunizations Vaccine Route Administration Date Status Comme nts Influenza Unknown 02/08/2018 Administered Influenza Unknown 09/14/2021 Refused Influenza Unknown 10/15/2024 Refused Social History Tobacco Use: Social History Observation Description Date Details (start date - stop date) Former Smoker NA - NA Tobacco Use/Smoking Question Answer Notes Patient is a former smoker When did you stop smoking? 30 years ago How long has it been since you last smoked? > 10 years AUDIT-C (Standard) Question Answer Notes Did you have a drink containing alcohol in the p ast year? No Points 0 Interpretation Negative Problems Problem Type SNOMED Code ICD Code Onset Dates Problem Status W/U Status Risk Notes Problem 254265201 Colon cancer screening (Z12.11) Active confirmed Problem 625599097 Change in bowel habit (R19.4) Active confirmed Problem 609886590 Encounter for other preprocedural examination (Z01.818) Active confirmed Problem 271199177 Family history o f colon cancer (Z80.0) Active confirmed Problem 548097207 RUQ pain (R10.11) Active confirmed Vital Signs Temperature 96.0 degrees Fahrenheit 10/15/2024 Blood pressure diastolic 01 mm Hg 10/15/2024 Height 69 in 10/15/2024 Blood pressure systolic 001 mm Hg 10/15/2024 Weight 279.2 lbs 10/15/2024 BMI 41.23 kg/m2 10/15/2024 Encounters Encounter Location Date Provider Diagnosis [facility] [address] [place] [phone] 10/15/2024 Jak Lees Jr RUQ pain R10.11 [facility] [address] [place] [phone] 10/21/2024 Jak Lees Jr Assessments Encounter Date Diagnosis (ICD Code) Assessment Notes Treatment Notes Treatment Clinical Notes Section Notes 10/15/2024 RUQ pain (ICD-10 - R10.11) We discussed her symptoms today. We recommended further evaluation with ultrasound imaging and laboratory studies. We will review her MRI when it becomes available. She may benefit from a trial of an antispasmodic if her symptoms persist pending results of her laboratory testing and imaging. We discussed this today. Plan Of Treatment Pending Test Test Name Order Date LIVER PROFILE 10/15/2024 LIPASE 10/15/2024 US ABD 10/15/2024 CBC & MANUAL DIFFERENTIAL 10/15/2024 Future Test Test Name Order Date COLONOSCOPY 07/04/2018 COLONOSCOPY 09/14/2021 Next Appt Details Provider Name:Jak sandoval Jr, 10/19/2025 10:20:00 AM, [address] [place] [address], [address], [place], [address], Insurance Providers Payer Name Payer Address Payer Phone Subscriber Number Group Number Insured Name Patient Relationship to Insured Coverage Start Date Coverage End Date [employer] [address] [place] [phone] [id number] VICKIE RIVAS Self - patient is the insured Medical (General) History Medical History History ICD Code hypertension Colonoscopy 10/12, normal, 5- year follow-up for family history of colon cancer. Surgical History Surgery Date(Month/Year)
--- OUTSIDE RECORDS SUMMARY | 2024-12-03 10:56 | XMS_ITS | Clinical Summary ---
Author Organization [facility] Address [address] [place] [address] Phone Care Team Providers Care Compliance Nurse Name Role Phone Sulma Echevarria PsyD Primary Care Provider [phone] Allergies No known active allergies Medications cholecalciferol , vitamin D3, 75 mcg (3,000 unit) tablet Take 1 tablet by mouth 1 (one) time each day. Active valsartan (DIOVAN) 160 mg tablet Take 1 tablet (160 mg total) by mouth 1 (one) time each day. Active multivitamin tablet Take 1 tablet by mouth 1 (one) time each day. Active cyanocobalamin (Vitamin B-12) 1,000 mcg tablet Take 1 tablet (1,000 mcg total) by mouth 1 (one) time each day at the same time. Active aspirin 81 mg EC tablet Take 1 tablet (81 mg total) by mouth 1 (one) time each day. 360 each 5 11/10/19 26 Active atorvastatin (LIPITOR) 40 mg tablet Take 1 tablet (40 mg total) by mouth 1 (one) time each day. 30 each 11 5 11/10/19 26 Active amLODIPine (NORVASC) 5 mg tablet Take 1 tablet (5 mg total) by mouth 1 (one) time each day. 11/08/19 25 Discontinu ed(Formula ry change) citalopram (CeleXA) 20 mg tablet Take 1 tablet (20 mg total) by mouth 1 (one) time each day. 11/08/19 25 Discontinu ed(Formula ry change) cyanocobalamin (VITAMIN B-12) 1,000 mcg tablet Take 1 tablet (1,000 mcg total) by mouth 1 (one) time each day. 11/08/19 Discontinu ed(Formula ry change) turmeric root extract 500 mg tablet Take 500 mg by mouth 1 (one) time each day at the same time. 11/09/19 Discontinu ed(Stop Taking at Discharge) Active Problems Problem Noted Date Diagnosed Date CVA (cerebral vascular accident) ([facility] V24, [facility] V28) 11/07/2024 Encounters Date Type Department Care Team Description 11/07/2024 4:31 PM EDT - 11/08/2024 5:51 PM EDT Hospital Encounter [facility] [address] [place] [address] Christopher Dunlap MD Zipagan, James T, MD Acute stroke due to ischemia ([facility] V24, [facility] V28) (Primary Dx); Numbness and tingling in left arm; Left facial numbness Discharge Disposition: Home or Self Care 10/29/2024 1:30 PM EDT Treatment [facility] Occupational Therapy [address] [address] Shelley Bello P, OTR/L Localized edema 10/29/2024 Plan of Care Documentation [facility] Occupational Therapy [address] [address] from Last 3 Months Medical History Medical History Date Comments Hypertension Family History Medical History Relation Name Comments Stroke Brother Stroke Father Diabetes Mother Breast cancer Sister Relation Name Status Comments Brother Father Mother Sister Social History Tobacco Use Types Packs/Day Years Used Date Smoking Tobacco: Never Tobacco Cessation:Counseling Given: Not Answered Alcohol Use Standard Drinks/Week Comments Not Currently 0 (1 standard drink = 0.6 oz pur e alcohol) Comments No Sex and Gender Information Value Date Recorded Sex Assigned at Not on file Legal Sex Female 9:26 AM EST Gender Identity Not on file Sexual Orientation Not on file Obstetrics History Last Filed Vital Signs Vital Sign Reading Time Taken Comments Blood Pressure 140/72 11/08/2024 3:20 PM EDT Pulse 72 11/08/2024 3:20 PM EDT Temperature 36.6 C (97.9 F) 11/08/2024 3:18 PM EDT Respiratory Rate 16 11/08/2024 3:18 PM EDT Oxygen Saturation 100% 11/08/2024 3:18 PM EDT Inhaled Oxygen Concentration - - Weight 122 kg (270 lb) 11/07/2024 4:37 PM EDT Height 175.3 cm (5' 9 ) 11/07/2024 4:37 PM EDT Body Mass Index 39.87 11/07/2024 4:37 PM EDT Plan of Treatment Health Maintenance Due Date Last Done Comments Hepatitis B Vaccines (1 of 3 - 19+ 3-dose series) 1985 Cervical Cancer Screening: Pap Smear 1987 Pneumococcal Vaccine: 50+ Years (1 of 1 - PCV) 2016 Zoster Vaccines (1 of 2) 2016 Colorectal Cancer Screening: Colonoscopy 03/26/2022 HIV Screening 03/26/2022 Hepatitis C Screening 03/26/2022 Social Influencers of Health Screening 03/26/2022 Breast Cancer Screening 04/28/2023 04/28/2021 COVID-19 Vaccine ( - season) 2023 03/08/2021, 06/01/2020, 04/29/2020 Depression Screening 04/23/2024 Influenza Vaccine (#1) 2024 2, 01/05/2020, 02/08/2018, Additional history exists Hypertension/CHF/CAD Annual BMP Blood Test 11/07/2025 11/07/2024 DTaP,Tdap,and Td Vaccines (2 - Td or Tdap) 12/04/2027 12/03/2017 Cholesterol Screening (Lipid Panel) 11/08/2029 11/08/2024 HIB Vaccines Aged Out No longer eligi ble based on patient's age to complete this topic HPV Vaccines Aged Out No longer eligi ble based on patient's age to complete this topic Hepatitis A Vaccines Aged Out No long er eligible based on patient's age to complete this topic IPV Vaccines Aged Out No longer eligi ble based on patient's age to complete this topic MMR Vaccines Aged Out No longer eligi ble based on patient's age to complete this topic Meningococcal ACWY Vaccine Aged Out N o longer eligible based on patient's age to complete this topic Meningococcal B Vaccine Aged Out No l onger eligible based on patient's age to complete this topic RSV Immunization Patients Under 20 months Aged Out No longer eligible based on patient's age to complete this topic Varicella Vaccines Aged Out No longer eligible based on patient's age to complete this topic Procedures Procedure Name Priority Date/Time Associated Diagnosis Comments ECG ANNOTATED 11/10/2024 CULTURE URINE STAT 11/08/2024 9:06 AM EDT LAVENDER - EDTA Routine 11/08/2024 5:58 AM EDT EXTRA TUBES Routine 11/08/2024 5:58 AM EDT LIPID PANEL WITH REFLEX TO DIRECT LDL Routine 11/08/2024 5:58 AM EDT VITAMIN D 25 HYDROXY Routine 11/08/2024 5:58 AM EDT VITAMIN B12 Routine 11/08/2024 5:58 AM EDT MR BRAIN WO AND W CONTRAST STAT 11/07/2024 8:47 PM EDT URINALYSIS WITH REFLEX MICROSCOPIC STAT 11/07/2024 6:27 PM EDT URINALYSIS WITH REFLEX MICROSCOPIC STAT 11/07/2024 6:27 PM EDT XR CHEST 1 VIEW STAT 11/07/2024 5:05 PM EDT ECG 12-LEAD STAT 11/07/2024 4:[address] ANGIO HEAD/NECK STROKE WO AND/OR W CONTRAST STAT 11/07/2024 4:[address] HEAD STROKE WO CONTRAST STAT 11/07/2024 4:50 PM EDT HEMOGLOBIN A1C Add-On 11/07/2024 4:35 PM EDT COMPREHENSIVE METABOLIC PANEL Add-On 11/07/2024 4:35 PM EDT CBC WITH AUTO DIFFERENTIAL STAT 11/07/2024 4:35 PM EDT TROPONIN I HIGH SENSITIVITY STAT 11/07/2024 4:35 PM EDT MAGNESIUM STAT 11/07/2024 4:35 PM EDT ACTIVATED PARTIAL THROMBOPLASTIN TIME STAT 11/07/2024 4:35 PM EDT PROTHROMBIN TIME WITH INR STAT 11/07/2024 4:35 PM EDT CBC AND DIFFERENTIAL STAT 11/07/2024 4:35 PM EDT IL CRITICAL CARE 30-74 MINUTES Routine 11/07/2024 4:21 PM EDT WHITLEY URINE CULTURE TUBE Routine 11/08/19 12:00 AM EDT EXTRA TUBES Routine 11/07/2024 12:00 AM EDT from Last 3 Months Results * ECG-Annotated (11/10/2024) us Provider Onbase ECG ORDERABLES Final Result * Urine Culture (11/08/2024 9:06 AM EDT) Culture, Urine 10,000-49,000 CFU/mL Mixed urogenital brinda, no uropathogens present. Suggest repeat specimen if clinically indicated. 11/10/2024 8:49 AM EDT DAWOOD LOREDO [place] ([facility]) [facility] Urine Urine specimen obtained by clean catch procedure / Unknown Non-blood Collection / Unknown 11/08/2024 9:06 AM EDT 11/08/2024 10:49 AM EDT us Christopher Dunlap MD LAB MICROBIOLOGY - GENERAL ORDER ELAYNE Final Result [facility] [address] [place] [address], [place] [phone] * Lipid panel with reflex to direct LDL (11/08/2024 5:58 AM EDT) Cholesterol 174 0 - 200 mg/dL LAB CHEMISTRY METHOD 11/08/2024 7:23 AM EDT [facility] Triglycerides 62 0 - 150 mg/dL LAB CHEMISTRY METHOD 11/08/2024 7:23 AM EDT [facility] HDL 73 >=40 mg/dL LAB CHEMISTRY METHOD 11/08/2024 7:23 AM EDT [facility] LDL Calculated 89 0 - 100 mg/dL LAB CHEMISTRY METHOD 11/08/2024 7:23 AM EDT [facility] VLDL Cholesterol Rakesh 12.4 mg/dL LAB CHEMISTRY METHOD 11/08/2024 7:23 AM EDT [facility] Non HDL Chol. (LDL+VLDL) 101 <145 mg/dL LAB CHEMISTRY METHOD 11/08/2024 7:23 AM EDT [facility] Chol/HDL Ratio 2.4 0.0 - 4.4 LAB CHEMISTRY METHOD 11/08/2024 7:23 AM EDT [facility] Blood Venous blood specimen / Unknown Venipuncture / Unknown 11/08/2024 5:58 AM EDT 11/08/2024 6:08 AM EDT Loida GUILLORY LAB BLOOD ORDERABLES Final Re sult [facility] [address] [place] [address], [place] [phone] * Lavender tube (11/08/2024 5:58 AM EDT) Extra Tube Hold for add-ons. 11/08/2024 8:01 AM EDT [facility] Comment:Auto resulted. Blood Venous blood specimen / Unknown Venipuncture / Unknown 11/08/2024 5:58 AM EDT 11/08/2024 6:09 AM EDT Juan Gerardo MD LAB BLOOD ORDERABLES Final Re sult Performing Organization Address [facility]/ZIP Co de Phone Number [facility] [address] [place] [address], [place] [phone] * Vitamin D 25 hydroxy (11/08/2024 5:58 AM EDT) Vit D, 25-Hydroxy 38.5 30.0 - 80.0 ng/mL LAB CHEMISTRY METHOD 11/08/2024 8:36 AM EDT [facility] Blood Venous blood specimen / Unknown Venipuncture / Unknown 11/08/2024 5:58 AM EDT 11/08/2024 6:08 AM EDT Loida GUILLORY LAB BLOOD ORDERABLES Final Re sult Performing Organization Address [facility] de Phone Number [facility] [address] [place] [address], [place] [phone] * Vitamin B12 (11/08/2024 5:58 AM EDT) Vitamin B-12 494 250 - 900 pcg/mL LAB CHEMISTRY METHOD 11/08/2024 7:45 AM EDT [facility] Blood Venous blood specimen / Unknown Venipuncture / Unknown 11/08/2024 5:58 AM EDT 11/08/2024 6:08 AM EDT Loida GUILLORY LAB BLOOD ORDERABLES Final Re sult Performing Organization Address [facility]/ZIP Co de Phone Number [facility] [address] [place] [address], [place] [phone] * MR Brain wo and w Contrast (11/07/2024 8:47 PM EDT) Anatomical Region Laterality Modality Head and Neck Magnetic Resonan ce 11/07/2024 9:37 PM EDT Impressions 11/07/2024 9:37 PM EDT Impression: 1. Tiny acute infarct in the high right parietal lobe 2. No acute hemorrhage. No intracranial mass. 3. Nonspecific demyelinating process in the cerebral hemispheres bilaterally and in the meir. No enhancing lesions. Differential diagnosis includes ischemic microvascular disease, multiple sclerosis, migraine headaches, vasculitis, infectious inflammatory processes. 4. Small DVA in the left frontal-temporal lobe This document has been electronically signed by: Madiha Del Castillo MD on 11/07/2024 21:37:03 Narrative 11/07/2024 9:37 PM EDT INDICATION: Neuro deficit, acute, stroke suspected Exam: MRI of the brain without IV contrast Comparison: No comparison Clinical history: Neuro deficit acute stroke suspected Findings: Diffusion sequence is positive for tiny acute infarct in the high right parietal lobe. No acute intracranial hemorrhage. No intracranial masses. No midline shift. No abnormal extra-axial fluid collections are seen. Areas of increased FLAIR signal within the cerebral white matter bilaterally are reflective of a nonspecific demyelinating process. Differential diagnosis includes ischemic microvascular disease, multiple sclerosis, migraine headaches, vasculitis, infectious inflammatory processes. Two small white matter lesions are seen within the meir. No enhancing white matter lesions. Gradient sequence does not demonstrate any areas of abnormal parenchymal signal dropout. Postcontrast imaging of the brain does not demonstrate any areas of abnormal parenchymal enhancement. Small DVA seen in the posterior left frontal/temporal lobe on series 12, image 111. Dural venous sinuses are patent. Fluid in the right mastoid air cells. Procedure Note Madiha Del Castillo MD - 11/07/2024 INDICATION: Neuro deficit, acute, stroke suspected Exam: MRI of the brain without IV contrast Comparison: No comparison Clinical history: Neuro deficit acute stroke suspected Findings: Diffusion sequence is positive for tiny acute infarct in the high right parietal lobe. No acute intracranial hemorrhage. No intracranial masses. No midline shift. No abnormal extra-axial fluid collections are seen. Areas of increased FLAIR signal within the cerebral white matter bilaterally are reflective of a nonspecific demyelinating process. Differential diagnosis includes ischemic microvascular disease, multiple sclerosis, migraine headaches, vasculitis, infectious inflammatory processes. Two small white matter lesions are seen within the meir. No enhancing white matter lesions. Gradient sequence does not demonstrate any areas of abnormal parenchymal signal dropout. Postcontrast imaging of the brain does not demonstrate any areas of abnormal parenchymal enhancement. Small DVA seen in the posterior left frontal/temporal lobe on series 12, image 111. Dural venous sinuses are patent. Fluid in the right mastoid air cells. IMPRESSION: Impression: 1. Tiny acute infarct in the high right parietal lobe 2. No acute hemorrhage. No intracranial mass. 3. Nonspecific demyelinating process in the cerebral hemispheres bilaterally and in the meir. No enhancing lesions. Differentialdiagnosis includes ischemic microvascular disease, multiple sclerosis, migraine headaches, vasculitis, infectious inflammatory processes. 4. Small DVA in the left frontal-temporal lobe This document has been electronically signed by: Madiha Del Castillo MD on 11/07/2024 21:37:03 Christopher Dunlap MD IM MRI PROCEDURES Final Result * (ABNORMAL) Urinalysis with reflex microscopic (11/07/2024 6:27 PM EDT) Specific Boss Urine 1.010 1.003 - 1.030 LAB URINALYSIS - AUTOMATED METHOD 11/07/2024 7:[address] [facility] pH, Urine 6.5 5.0 - 8.0 pH LAB URINALYSIS - AUTOMATED METHOD 11/07/2024 7:[address] [facility] Leukocytes, Urine Trace(A) Negative LAB URINALYSIS - AUTOMATED METHOD 11/07/2024 7:[address] [facility] Nitrite, Urine Negative Negative LAB URINALYSIS - AUTOMATED METHOD 11/07/2024 7:[address] [facility] Protein, Urine Negative <=Trace mg/dL LAB URINALYSIS - AUTOMATED METHOD 11/07/2024 7:[address] [facility] Glucose, Urine Negative Negative mg/dL LAB URINALYSIS - AUTOMATED METHOD 11/07/2024 7:[address] [facility] Ketones, Urine Negative Negative mg/dL LAB URINALYSIS - AUTOMATED METHOD 11/07/2024 7:18 PM EDT [facility] Urobilinogen, Urine 0.2 0.2 - 1.0 mg/dL LAB URINALYSIS - AUTOMATED METHOD 11/07/2024 7:18 PM EDT [facility] Bilirubin, Urine Negative Negative LAB URINALYSIS - AUTOMATED METHOD 11/07/2024 7:18 PM EDT [facility] Blood, Urine Negative Negative LAB URINALYSIS - AUTOMATED METHOD 11/07/2024 7:18 PM EDT [facility] RBC, Urine 0 /HPF 11/07/2024 7:18 PM EDT [facility] WBC, Urine 4 /HPF 11/07/2024 7:18 PM EDT [facility] Squamous Epithelial, Urine 3 /LPF 11/07/2024 7:18 PM EDT [facility] Bacteria, Urine 1+(A) (none) /HPF 11/07/2024 7:18 PM EDT [facility] Urine Urine specimen obtained by clean catch procedure / Unknown Non-blood Collection / Unknown 11/07/2024 6:27 PM EDT 11/07/2024 6:53 PM EDT us Christopher Dunlap MD LAB URINE ORDERABLES Final Resul t [facility] [address] [place] [address], * XR Chest 1 View (11/07/2024 5:05 PM EDT) Anatomical Region Laterality Modality Body Radiographic Elli ging 11/07/2024 5:57 PM EDT Impressions 11/07/2024 6:02 PM EDT No pneumonia or edema. -------- FINAL REPORT -------- Dictated By: Alpesh Bazzi Dictated Date: 11/07/2024 17:57 ET Assigned Physician: Alpesh Bazzi Reviewed and Electronically Signed By: Alpesh Bazzi Signed Date: 11/07/2024 18:02 ET Workstation ID: [id number] Transcribed By: Self Edit Transcribed Date: 11/07/2024 17:57 ET Narrative 11/07/2024 6:02 PM EDT EXAMINATION: CHEST CLINICAL INFORMATION: Stroke COMPARISON: None. TECHNIQUE: Portable frontal sitting view of the chest FINDINGS: There is rotation to the left. The cardiac size is within normal limits. There is mild tortuosity of the descending aorta. There is no hilar mass, vascular congestion or edema. No focal pneumonia or major zone of atelectasis. The visualized pleural margins are within normal limits. Slight relative elevation of the right hemidiaphragm. No suspicious focal bony lesion. Procedure Note Alpesh Bazzi MD - 11/07/2024 EXAMINATION: CHEST CLINICAL INFORMATION: Stroke COMPARISON: None. TECHNIQUE: Portable frontal sitting view of the chest FINDINGS: There is rotation to the left. The cardiac size is within normal limits. There is mild tortuosity of thedescending aorta. There is no hilar mass, vascular congestion or edema. No focal pneumonia or major zone of atelectasis. The visualized pleural margins are within normal limits. Slight relative elevation of the right hemidiaphragm. No suspicious focal bony lesion. IMPRESSION: No pneumonia or edema. -------- FINAL REPORT -------- Dictated By: Alpesh Bazzi Dictated Date: 11/07/2024 17:57 ET Assigned Physician: Alpesh Bazzi Reviewed and Electronically Signed By: Alpesh Bazzi Signed Date: 11/07/2024 18:02 ET Workstation ID: [id number] Transcribed By: Self Edit Transcribed Date: 11/07/2024 17:57 ET us Christopher Dunlap MD IMTalisha XR PROCEDURES Final Result * Electrocardiogram, 12 lead (11/07/2024 4:57 PM EDT) Ventricular Rate ECG 91 BPM GEMUSE Atrial Rate 91 BPM GEMUSE P-R Interval 196 ms GEMUSE QRS Duration 94 ms GEMUSE Q-T Interval 382 ms GEMUSE QTc 469 ms GEMUSE P Wave [place] 55 degrees GEMUSE R [place] 19 degrees GEMUSE T [place] 23 degrees GEMUSE ECG Interpretation Normal sinus rhythm Normal ECG No previous ECGs available Confirmed by ALBERTO POMPA ([id number]) on 11/08/2024 4:29:26 PM GEMUSE 11/07/2024 4:57 PM EDT 11/08/2024 4:29 PM EDT us Christopher Dunlap MD ECG ORDERABLES Final Result GEMUSE * CT Angio Head/Neck Stroke wo and/or w Contrast (11/07/2024 4:50 PM EDT) Anatomical Region Laterality Modality Head and Neck Computed Tomogra phy 11/07/2024 5:04 PM EDT Impressions 11/07/2024 5:14 PM EDT Patent cervical and intracranial arterial vasculature -------- FINAL REPORT -------- Dictated By: ROBBIN BURKS Dictated Date: 11/07/2024 17:04 ET Assigned Physician: ROBBIN BURKS Reviewed and Electronically Signed By: ROBBIN BURKS Signed Date: 11/07/2024 17:14 ET Workstation ID: [id number] Transcribed By: Self Edit Transcribed Date: 11/07/2024 17:04 ET Narrative 11/07/2024 5:14 PM EDT PROCEDURE: Head/neck CTA INDICATION: Stroke, left arm weakness TECHNIQUE: CTA of the head and neck with intravenous contrast. Multiplanar reformats. The examination was performed utilizing dose reduction techniques.3-D or MIP images were produced with postprocessing on an independent computer workstation. 90 mL [id number] injected intravenously without complication. COMPARISON: No priors available. FINDINGS: CTA Neck: There is a left-sided aortic arch. Major branching arteries arising from the aortic arch are patent. Common carotid and internal carotid arteries are patent in the neck. Cervical vertebral arteries are patent. No dissection. Visualized lung apices are clear. Soft tissues of the neck are normal. Degenerative changes seen throughout the cervical spine. CTA Head: Intracranial portions of the internal carotid arteries are patent. M1 and A1 segments are patent. Distal middle cerebral and anterior cerebral arteries are patent. Vertebrobasilar system is patent. Superior cerebellar and posterior cerebral arteries are patent. Major dural venous sinuses opacify normally with contrast. Developmental venous anomaly noted in the left posterior insular region. No intracranial aneurysm or vascular malformation. Procedure Note Robbin Burks MD - 11/07/2024 PROCEDURE: Head/neck CTA INDICATION: Stroke, left arm weakness TECHNIQUE: CTA of the head and neck with intravenous contrast. Multiplanarreformats. The examination was performed utilizing dose reductiontechniques.3-D or MIP images were produced with postprocessing on anindependent computer workstation. 90 mL [id number] injected intravenouslywithout complication. COMPARISON: No priors available. FINDINGS: CTA Neck: There is a left-sided aortic arch. Major branching arteries arising fromthe aortic arch are patent. Common carotid and internal carotid arteries are patent in the neck.Cervical vertebral arteries are patent. No dissection. Visualized lung apices are clear. Soft tissues of the neck are normal.Degenerative changes seen throughout the cervical spine. CTA Head: Intracranial portions of the internal carotid arteries are patent. M1 andA1 segments are patent. Distal middle cerebral and anterior cerebralarteries are patent. Vertebrobasilar system is patent. Superior cerebellar and posteriorcerebral arteries are patent. Major dural venous sinuses opacify normally with contrast. Developmentalvenous anomaly noted in the left posterior insular region. No intracranial aneurysm or vascular malformation. IMPRESSION: Patent cervical and intracranial arterial vasculature -------- FINAL REPORT -------- Dictated By: ROBBIN BURKS Dictated Date: 11/07/2024 17:04 ET Assigned Physician: ROBBIN BURKS Reviewed and Electronically Signed By: ROBBIN BURKS Signed Date: 11/07/2024 17:14 ET Workstation ID: [id number] Transcribed By: Self Edit Transcribed Date: 11/07/2024 17:[address] PROCEDURES Final Result * CT Head Stroke wo Contrast (11/07/2024 4:50 PM EDT) Anatomical Region Laterality Modality Head and Neck Computed Tomogra phy 11/07/2024 4:56 PM EDT Impressions 11/07/2024 5:03 PM EDT No acute intracranial abnormality. Findings communicated to Dr. Dunlap at 5:00 PM 11/07/2024 -------- FINAL REPORT -------- Dictated By: ROBBIN BURKS Dictated Date: 11/07/2024 16:56 ET Assigned Physician: ROBBIN BURKS Reviewed and Electronically Signed By: ROBBIN BURKS Signed Date: 11/07/2024 17:03 ET Workstation ID: [id number] Transcribed By: Self Edit Transcribed Date: 11/07/2024 16:56 ET Narrative 11/07/2024 5:03 PM EDT PROCEDURE: HEAD CT INDICATION: Stroke, pain TECHNIQUE: CT of the head without intravenous contrast. Multiplanar reformats. The examination was performed utilizing dose reduction techniques. Total DLP 717 COMPARISON: No priors available. FINDINGS: No acute territorial infarct, mass effect, or intracranial hemorrhage. Whitley-white differentiation is preserved. Brain parenchyma is within normal limits. Ventricles, sulci, and cisterns are normal in size and configuration. No hydrocephalus or volume loss. Visualized paranasal sinuses and mastoid air cells are clear. No scalp hematoma or skull fracture. Procedure Note Robbin Burks MD - 11/07/2024 PROCEDURE: HEAD CT INDICATION: Stroke, pain TECHNIQUE: CT of the head without intravenous contrast. Multiplanarreformats. The examination was performed utilizing dose reductiontechniques. Total DLP 717 COMPARISON: No priors available. FINDINGS: No acute territorial infarct, mass effect, or intracranial hemorrhage. Whitley-white differentiation is preserved. Brain parenchyma is withinnormal limits. Ventricles, sulci, and cisterns are normal in size and configuration. Nohydrocephalus or volume loss. Visualized paranasal sinuses and mastoid air cells are clear. No scalp hematoma or skull fracture. IMPRESSION: No acute intracranial abnormality. Findings communicated to Dr. Dunlap at 5:00 PM 11/07/2024 -------- FINAL REPORT -------- Dictated By: ROBBIN BURKS Dictated Date: 11/07/2024 16:56 ET Assigned Physician: ROBBIN BURKS Reviewed and Electronically Signed By: ROBBIN BURKS Signed Date: 11/07/2024 17:03 ET Workstation ID: [id number] Transcribed By: Self Edit Transcribed Date: 11/07/2024 16:56 ET us Christopher Dunlap MD IMG CT PROCEDURES Final Result * Troponin I high sensitivity (NOW) (11/07/2024 4:35 PM EDT) [facility] High Sensitivity Troponin I 9 <=54 ng/L LAB CHEMISTRY METHOD 11/07/2024 5:43 PM EDT [facility] Blood Venous blood specimen / Unknown Venipuncture / Unknown 11/07/2024 4:35 PM EDT 11/07/2024 5:06 PM EDT Narrative [facility] - 11/07/2024 5:43 PM EDT High levels of biotin in samples may falsely decrease hsTroponin values. Use caution when interpreting hsTroponin results in patients taking biotin who exhibit renal impairment (eGFR <60) or in patients taking more than 20 mg/day of biotin. us Christopher Dunlap MD LAB BLOOD ORDERABLES Final Resul t [facility] [address] [place] [address], * (ABNORMAL) CBC auto differential (11/07/2024 4:35 PM EDT) [facility] WBC 7.8 4.8 - 10.8 K/mcL LAB HEMETOLOGY METHOD 11/07/2024 5:15 PM EDT [facility] RBC 3.70(L) 3.80 - 4.80 M/mcL LAB HEMETOLOGY METHOD 11/07/2024 5:15 PM EDT [facility] Hemoglobin 11.2(L) 11.5 - 16.0 g/dL LAB HEMETOLOGY METHOD 11/07/2024 5:15 PM EDT [facility] Hematocrit 35.2 35.0 - 47.0 % LAB HEMETOLOGY METHOD 11/07/2024 5:15 PM EDT [facility] MCV 96.2 79.0 - 98.0 FL LAB HEMETOLOGY METHOD 11/07/2024 5:15 PM EDT [facility] MCH 30.6 27.0 - 32.0 pcg LAB HEMETOLOGY METHOD 11/07/2024 5:15 PM EDT [facility] MCHC 31.8(L) 32.0 - 37.0 g/dL LAB HEMETOLOGY METHOD 11/07/2024 5:15 PM EDT [facility] RDW 12.9 11.0 - 15.0 % LAB HEMETOLOGY METHOD 11/07/2024 5:15 PM EDT [facility] Platelets 312 130 - 400 K/mcL LAB HEMETOLOGY METHOD 11/07/2024 5:15 PM EDT [facility] MPV 9.5 7.0 - 11.0 FL LAB HEMETOLOGY METHOD 11/07/2024 5:15 PM EDT [facility] NRBC 0.0 <1.0 % LAB HEMETOLOGY METHOD 11/07/2024 5:15 PM EDT [facility] NRBC Absolute 0.00 <0.10 K/mcL LAB HEMETOLOGY METHOD 11/07/2024 5:15 PM EDT [facility] Neutrophils Relative 44.4 % LAB HEMETOLOGY METHOD 11/07/2024 5:15 PM EDT [facility] Lymphocytes Relative 41.5 % LAB HEMETOLOGY METHOD 11/07/2024 5:15 PM EDT [facility] Monocytes Relative 8.4 % LAB HEMETOLOGY METHOD 11/07/2024 5:15 PM EDT [facility] Eosinophils Relative 5.0 % LAB HEMETOLOGY METHOD 11/07/2024 5:15 PM EDT [facility] Basophils Relative 0.4 % LAB HEMETOLOGY METHOD 11/07/2024 5:15 PM EDT [facility] Immature Granulocytes Relative 0.3 % LAB HEMETOLOGY METHOD 11/07/2024 5:15 PM EDT [facility] Neutrophils Absolute 3.44 1.50 - 7.00 K/mcL LAB HEMETOLOGY METHOD 11/07/2024 5:15 PM EDT [facility] Lymphocytes Absolute 3.22 1.00 - 5.00 K/mcL LAB HEMETOLOGY METHOD 11/07/2024 5:15 PM EDT [facility] Monocytes Absolute 0.65 0.20 - 1.00 K/mcL LAB HEMETOLOGY METHOD 11/07/2024 5:15 PM EDT [facility] Eosinophils Absolute 0.39 0.00 - 0.50 K/mcL LAB HEMETOLOGY METHOD 11/07/2024 5:15 PM EDT [facility] Basophils Absolute 0.03 0.00 - 0.20 K/mcL LAB HEMETOLOGY METHOD 11/07/2024 5:15 PM EDT [facility] Immature Granulocytes Absolute 0.02 0.00 - 0.03 K/mcL LAB HEMETOLOGY METHOD 11/07/2024 5:15 PM EDT [facility] Blood Venous blood specimen / Unknown Venipuncture / Unknown 11/07/2024 4:35 PM EDT 11/07/2024 5:05 PM EDT us Christopher Dunlap MD LAB BLOOD ORDERABLES Final Resul t [facility] [address] [place] [address], * Activated partial thromboplastin time (11/07/2024 4:35 PM EDT) aPTT 31.8 24.1 - 39.3 sec LAB COAGULATION METHOD 11/07/2024 5:20 PM EDT [facility] Blood Venous blood specimen / Unknown Venipuncture / Unknown 11/07/2024 4:35 PM EDT 11/07/2024 5:06 PM EDT us Christopher Dunlap MD LAB BLOOD ORDERABLES Final Resul t Performing Organization Address [facility] Co de Phone Number [facility] [address] [place] [address], [place] [phone] * Prothrombin time with INR (11/07/2024 4:35 PM EDT) Protime 12.2 10.6 - 13.9 sec LAB COAGULATION METHOD 11/07/2024 5:20 PM EDT [facility] INR 1.0 LAB COAGULATION METHOD 11/07/2024 5:20 PM EDT [facility] Blood Venous blood specimen / Unknown Venipuncture / Unknown 11/07/2024 4:35 PM EDT 11/07/2024 5:06 PM EDT us Christopher Dunlap MD LAB BLOOD ORDERABLES Final Resul t Performing Organization Address [facility]/ZIP Co de Phone Number [facility] [address] [place] [address], [place] [phone] * Magnesium (11/07/2024 4:35 PM EDT) Magnesium 2.0 1.9 - 2.6 mg/dL LAB CHEMISTRY METHOD 11/07/2024 5:29 PM EDT [facility] Blood Venous blood specimen / Unknown Venipuncture / Unknown 11/07/2024 4:35 PM EDT 11/07/2024 5:06 PM EDT Christopher Dunlap MD LAB BLOOD ORDERABLES Final Resul t [facility] [address] [place] [address], [place] [phone] * Hemoglobin A1c (11/07/2024 4:35 PM EDT) Pathologist [facility] Hemoglobin A1C 5.7 <6.5 % LAB CHEMISTRY METHOD 11/07/2024 10:51 PM EDT [facility] Mean Bld Glu Estim. 117 mg/dL LAB CHEMISTRY METHOD 11/07/2024 10:51 PM EDT [facility] Blood Venous blood specimen / Unknown Venipuncture / Unknown 11/07/2024 4:35 PM EDT 11/07/2024 5:05 PM EDT Loida GUILLORY LAB BLOOD ORDERABLES Final Re sult Performing Organization Address City/[facility]/ZIP Co de Phone Number [facility] [address] [place] [address], [place] [phone] * (ABNORMAL) Comprehensive metabolic panel (11/07/2024 4:35 PM EDT) Pathologist [facility] Sodium 135 133 - 145 mmol/L LAB CHEMISTRY METHOD 11/07/2024 7:41 PM EDT [facility] Potassium 3.4(L) 3.5 - 5.5 mmol/L LAB CHEMISTRY METHOD 11/07/2024 7:41 PM EDT [facility] Chloride 100 96 - 110 mmol/L LAB CHEMISTRY METHOD 11/07/2024 7:41 PM EDT [facility] CO2 24 21 - 32 mmol/L LAB CHEMISTRY METHOD 11/07/2024 7:41 PM EDT [facility] Anion Gap 11 3 - 11 LAB CHEMISTRY METHOD 11/07/2024 7:41 PM EDT [facility] Glucose 94 70 - 100 mg/dL LAB CHEMISTRY METHOD 11/07/2024 7:[address] [facility] BUN 11 5 - 25 mg/dL LAB CHEMISTRY METHOD 11/07/2024 7:[address] [facility] Creatinine 0.79 0.50 - 1.10 mg/dL LAB CHEMISTRY METHOD 11/07/2024 7:[address] [facility] eGFR 87 >=60 mL/min/1. 73m2 LAB CHEMISTRY METHOD 11/07/2024 7:[address] [facility] Comment:Calculation based on the Chronic Kidney Disease Epidemiology Collaboration (CKD-EPI) equation refit without adjustment for race. BUN/Creatinine Ratio 13.9 LAB CHEMISTRY METHOD 11/07/2024 7:[address] [facility] Calcium 9.2 8.5 - 10.5 mg/dL LAB CHEMISTRY METHOD 11/07/2024 7:[address] [facility] AST (SGOT) 34 10 - 42 unit/L LAB CHEMISTRY METHOD 11/07/2024 7:[address] [facility] ALT (SGPT) 49 10 - 60 unit/L LAB CHEMISTRY METHOD 11/07/2024 7:[address] [facility] Alkaline Phosphatase 126(H) 42 - 121 unit/L LAB CHEMISTRY METHOD 11/07/2024 7:[address] [facility] Total Protein 7.5 6.0 - 8.0 g/dL LAB CHEMISTRY METHOD 11/07/2024 7:[address] [facility] Albumin 4.2 3.2 - 5.0 g/dL LAB CHEMISTRY METHOD 11/07/2024 7:[address] [facility] Total Bilirubin 0.5 0.0 - 1.4 mg/dL LAB CHEMISTRY METHOD 11/07/2024 7:[address] [facility] Blood Venous blood specimen / Unknown Venipuncture / Unknown 11/07/2024 4:35 PM EDT 11/07/2024 5:06 PM EDT us Loida GUILLORY LAB BLOOD ORDERABLES Final Re sult Performing Organization Address City/[facility]/ZIP Co de Phone Number [facility] [address] [place] [address], [place] [phone] * [place] CRITICAL CARE 30-74 MINUTES (11/07/2024 4:21 PM EDT) Narrative Christopher Dunlap MD - 11/07/2024 4:21 PM EDT Christopher Dunlap MD 11/20/2024 8:47 AM Critical Care Performed by: Christopher Dunlap MD Authorized by: Christopher Dunlap MD Critical care provider statement: Critical care time (minutes): 36 Total face to face critical care time (minutes): 36 Critical care time was exclusive of: Separately billable procedures and treating other patients Critical care was necessary to treat or prevent imminent or life-threatening deterioration of the following conditions: 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 failure or compromise Critical care was time spent personally by me on the following activities: Development of treatment plan with patient or surrogate, discussions with consultants, evaluation of patient's response to treatment, ordering and review of laboratory studies, ordering and review of radiographic studies, re-evaluation of patient's condition, review of old charts, ordering and performing treatments and interventions and examination of patient I assumed direction of critical care for this patient from another provider in my specialty: no Care discussed with: admitting provider Christopher Dunlap MD IN CLINIC/BEDSIDE ORDERABLES Fin al Result * [place] urine culture tube (11/07/2024 12:00 AM EDT) Extra Tube Hold for add-ons. 11/07/2024 8:01 PM EDT [facility] Comment:Auto resulted. Urine Urine specimen obtained by clean catch procedure / Unknown 11/07/2024 11/07/2024 6:54 PM EDT us Christopher Dunlap MD LAB URINE ORDERABLES Final Resul t Performing Organization Address [facility]/ZIP Co de Phone Number [facility] [address] [place] [address], [place] [phone] from Last 3 Months Insurance [facility] Advance Directives * Full Code - Confirmed (Latest Code Status on File) Date Activated Date Inactivated Comments 11/07/2024 7:21 PM 11/08/2024 8:[address] at[facility] was ascertained in the following way: Code status discussion: discussion with patient To update the patient's code status, place a code status order. Do not modify or discontinue any currently active code status orders. * Full Code - Default Date Activated Date Inactivated Comments 11/07/2024 6:55 PM 11/07/2024 7:21 PM This is orde r is used when code status has not been discussed with the patient, or code status is otherwise unknown/unconfirmed To update the patient's code status, place a code status order. Do not modify or discontinue any currently active code status orders. Care Teams Compliance Nurse Relationship Specialty Start Date End Date Sulma Echevarria PsyD [address] [place] [address] PCP - General 10/10/24
== END 2024-12-03 10:15 | disposition home or self-care (01) ==
LOC: HO.US 10:14
PROVIDERS: PCP Student in an Organized Health Care Education/Training Program; Visit Provider Internal Medicine Gastroenterology
DX: R10.11 Right upper quadrant pain (principal)
CPT/HCPCS: 76700

== ENCOUNTER → 2024-12-03 10:37 | Outpatient (BNV) | payer OTHER, SELFPAY | PROVIDERS: PCP Student in an Organized Health Care Education/Training Program; Visit Provider Radiology Diagnostic Radiology | DX: N28.1 Cyst of kidney, acquired (principal) | CPT/HCPCS: 76700 ==